=== PATIENT | male | born 1985 | race Caucasian/White ===

== ENCOUNTER 2016-04-15 23:04 | Emergency (ER) | payer OTHER ==
[2016-04-15 23:10] VITALS: BP 135/89; PULSE 78; RESP 16; TEMP 99.1
--- NOTE | 2016-04-15 23:29 | ED ---
General Adult HPI - General Chief complaint: Eye Problems Stated complaint: Vision Issues Time Seen by Provider: 04/15/16 23:18 Source: patient, RN notes reviewed, old records reviewed Mode of arrival: ambulatory Limitations: no limitations - History of Present Illness Initial comments: This is a 30-year-old male out of the ER for evaluation of eye pain, bilateral eye pain, severe, blurry vision. Eyes watering. 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 No other injuries - Related Data Home Medications Medication Instructions Recorded Confirmed No Known Home Medications [No 04/15/16 04/15/16 Known Home Medications] Allergies Allergy/AdvReac Type Severity Reaction Status Date / Time No Known Allergies Allergy Verified 04/15/16 23:10 Review of Systems ROS Statement: Those systems with pertinent positive or pertinent negative responses have been documented in the HPI. ROS Other: All systems not noted in ROS Statement are negative. 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 Absent: scleral icterus, conjunctival injection, periorbital swelling ENT exam: Present: normal exam, mucous membranes moist Neck exam: Present: normal inspection. Absent: tenderness, meningismus, lymphadenopathy Respiratory exam: Present: normal lung sounds bilaterally. Absent: respiratory distress, wheezes, rales, rhonchi, stridor Cardiovascular Exam: Present: regular rate, normal rhythm, normal heart sounds. Absent: systolic murmur, diastolic murmur, rubs, gallop, clicks GI/Abdominal exam: Present: soft, normal bowel sounds. Absent: distended, tenderness, guarding, rebound, rigid Extremities exam: Present: normal inspection, full ROM, normal capillary refill. Absent: tenderness, pedal edema, joint swelling, calf tenderness Back exam: Present: normal inspection Neurological exam: Present: alert, oriented X3, CN II-XII intact Psychiatric exam: Present: normal affect, normal mood Skin exam: Present: warm, dry, intact, normal color. 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
== END 2016-04-16 00:08 | disposition home or self-care (01) ==
LOC: EC 23:04
DX: H16.133 Photokeratitis, bilateral (principal); X32.XXXA Exposure to sunlight, initial encounter; F17.200 Nicotine dependence, unspecified, uncomplicated
CPT/HCPCS: 99282

== ENCOUNTER → 2016-10-31 | Outpatient (CLI) | payer OTHER ==
--- NOTE | 2016-10-31 13:43 | XR ---
EXAMINATION TYPE: XR hand complete LT, XR wrist complete LT DATE OF EXAM: 10/31/2016 CLINICAL HISTORY: Crushing injury with pain and swelling at the first metacarpal area and scaphoid pa in. Additional scaphoid view was obtained. TECHNIQUE: Frontal, lateral and oblique images of the left hand and wrist are obtained. COMPARISON: None. FINDINGS: There is no acute fracture/dislocation evident in the left hand or wrist. The joint spaces in the left hand appear within normal limits. The overlying soft tissue appears unremarkable. No la ceration, subcutaneous emphysema or radiopaque foreign body is seen. IMPRESSION: There is no acute fracture or dislocation in the left hand or wrist. If pain persists re peat radiograph could be performed in 7-10 days to evaluate for occult fracture.
== END | disposition home or self-care (01) ==
LOC: RADXRMAIN 12:53
PROVIDERS: ATTEND Emergency Medicine
DX: S67.22XA Crushing injury of left hand, initial encounter (principal); S67.32XA Crushing injury of left wrist, initial encounter

== ENCOUNTER 2017-07-17 22:27 | Emergency (ER) | payer OTHER ==
[2017-07-17 23:19] VITALS: RESP 18
--- NOTE | 2017-07-17 23:51 | ED ---
URI HPI - General Chief Complaint: Upper Respiratory Infection Stated Complaint: ear pain Time Seen by Provider: 07/17/17 23:41 Source: patient, RN notes reviewed Mode of arrival: ambulatory Limitations: no limitations - History of Present Illness Initial Comments: This is a 31-year-old male who presents to the emergency department with chief complaint of right ear pain and cough. Patient states that he has had upper respiratory symptoms for the past one week. He complains of right ear pain and fullness, sore throat, runny nose and a productive cough. He does state that he is a current, every day smoker. Denies fevers or chills, shortness of breath or chest pain, abdominal pain, nausea or vomiting, diarrhea or constipation. - Related Data Previous Rx's Medication Instructions Recorded Amoxicillin 875 mg PO Q8HR #30 tablet 07/18/17 Allergies Allergy/AdvReac Type Severity Reaction Status Date / Time No Known Allergies Allergy Verified 07/17/17 23:24 Review of Systems ROS Statement: Those systems with pertinent positive or pertinent negative responses have been documented in the HPI. ROS Other: All systems not noted in ROS Statement are negative. Past Medical History Past Medical History: No Reported History History of Any Multi-Drug Resistant Organisms: None Reported Past Surgical History: Orthopedic Surgery Additional Past Surgical History / Comment(s): pmh:hemangioma in brain tenriism area l side, bilat knee Past Psychological History: No Psychological Hx Reported Smoking Status: Current every day smoker Past Alcohol Use History: Rare Past Drug Use History: None Reported General Exam - General Exam Comments Initial Comments: General: Awake and alert, well-developed; in no apparent distress. HEENT: Head atraumatic, normocephalic. Pupils are equal, round and reactive to light. Extraocular movements intact. Oropharynx moist with mild erythema. Right TM is erythematous with effusion noted. Left TM is non-erythematous with effusion noted. Neck: Supple. Normal ROM. Cardiovascular: Regular rate and rhythm. No murmurs, rubs or gallops. Chest symmetrical. Respiratory: Lungs clear to auscultation bilaterally. No wheezes, rales or rhonchi. Normal respiratory effort with no use of accessory muscles. Musculoskeletal: Normal ROM, no tenderness bilateral upper and lower extremities. Skin: [place], warm and dry without rashes or lesions. Neurological: Alert and oriented x3. CN II-XII grossly intact. Speech is fluent and answers are appropriate. No focal neuro deficits. Psychiatric: Normal mood and affect. No overt signs of depression or anxiety noted. Limitations: no limitations Course Vital Signs 07/17/17 07/17/17 23:16 23:58 Temperature 98.7 F Pulse Rate 89 Respiratory 18 18 Rate Blood Pressure 119/68 O2 Sat by Pulse 97 Oximetry Medical Decision Making - Medical Decision Making This is a 31-year-old male who presents to the emergency department with chief complaint of upper respiratory symptoms for the past one week. Complains of cough, sore throat and particularly right ear pain. On physical examination, lungs are clear to auscultation bilaterally. Right TM is erythematous with effusion noted. Patient will be treated for an acute otitis media. Chest x- ray was obtained and revealed no acute abnormalities. Patient will be discharged home with a prescription for amoxicillin. He is in agreement with plan and voices understanding. All questions answered. Vital signs are stable and patient is in no acute distress. - Radiology Data Radiology results: report reviewed, image reviewed Chest x-ray impression: Normal chest. No change. Disposition Clinical Impression: Otitis media Disposition: HOME SELF-CARE Condition: Good Instructions: Otitis Media (ED) Additional Instructions: Please take medications as prescribed. Please follow up with primary care provider within 1-2 days. Return to emergency department if symptoms should worsen or any concerns arise. Prescriptions: Amoxicillin 875 mg PO Q8HR #30 tablet Is patient prescribed a controlled substance at d/c from ED?: No Referrals: Vic Spencer MD [Primary Care Provider] - 1-2 days Time of Disposition: 00:09
--- NOTE | 2017-07-18 00:04 | XR ---
EXAMINATION TYPE: XR chest 2V DATE OF EXAM: 07/17/2017 COMPARISON: 02/28/2011 HISTORY: Cough TECHNIQUE: Frontal and lateral views of the chest are obtained. FINDINGS: Heart and mediastinum are normal. Lungs are clear. Diaphragm is normal. Bony thorax appear s normal. IMPRESSION: Normal chest. No change.
[2017-07-18 00:09] VITALS: BP 149/76; PULSE 70; TEMP 98.1
== END 2017-07-18 00:35 | disposition home or self-care (01) ==
LOC: EC 22:27
DX: H66.91 Otitis media, unspecified, right ear (principal); R05 Cough; R09.89 Other specified symptoms and signs involving the circulatory and respiratory systems; F17.200 Nicotine dependence, unspecified, uncomplicated
CPT/HCPCS: 71046; 99283

== ENCOUNTER 2017-10-31 16:58 | Emergency (ER) | payer OTHER ==
[2017-10-31 17:01] VITALS: RESP 18
--- NOTE | 2017-10-31 17:37 | XR ---
EXAMINATION TYPE: XR knee complete LT DATE OF EXAM: 10/31/2017 COMPARISON: NONE HISTORY: Knee pain TECHNIQUE: 2 views FINDINGS: There is spurring of the medial femoral and tibial condyles. I see no fracture nor dislocat ion. There is no sign of joint effusion. IMPRESSION: Hypertrophic mild osteoarthritis. Spurring is moderate for the patient's relatively young age. No fracture.
--- NOTE | 2017-10-31 18:20 | ED ---
General Adult HPI - General Chief complaint: Wound/Laceration Stated complaint: left knee injury chainsaw Time Seen by Provider: 10/31/17 17:10 Source: patient, RN notes reviewed Mode of arrival: ambulatory Limitations: no limitations - History of Present Illness Initial comments: Patient's 32-year-old male presented to the emergency room today with a chief complaint of laceration to the left lower leg. He does admit he was using a chainsaw earlier today cutting a tree when the saw slipped kicking back hitting the left knee. Patient states tetanus is up-to-date. Admits to pain locally. Denies any other complaints or symptoms. Patient denies any recent fever, chills , shortness of breath, chest pain, back pain, abdominal pain, nausea or vomiting , numbness or tingling, dysuria or hematuria, constipation or diarrhea, headaches or visual changes, or any other complaints. - Related Data Previous Rx's Medication Instructions Recorded Amoxicillin 875 mg PO Q8HR #30 tablet 07/18/17 Cephalexin [Keflex] 500 mg PO Q12HR #14 cap 10/31/17 Allergies Allergy/AdvReac Type Severity Reaction Status Date / Time No Known Allergies Allergy Verified 10/31/17 17:01 Review of Systems ROS Statement: Those systems with pertinent positive or pertinent negative responses have been documented in the HPI. ROS Other: All systems not noted in ROS Statement are negative. 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 Neck: The neck is supple, there is no tenderness or JVD. Cardiovascular: There is a regular rate and rhythm. No murmur, rub or gallop is appreciated. Respiratory: Lungs are clear to auscultation, respirations are non-labored, breath sounds are equal. No wheezes, stridor, rales, or rhonchi. Musculoskeletal: Full range of motion. Sensation intact. Strength 5/5. Neurological: A&O x 3. CN II-XII intact, There are no obvious motor or sensory deficits. Coordination appears grossly intact. Speech is normal. Skin: 3 cm linear laceration over the anterior left knee. No active bleeding. Psychiatric: Normal mood and affect. Limitations: no limitations Course Vital Signs 10/31/17 16:59 Temperature 98.9 F Pulse Rate 93 Respiratory 18 Rate Blood Pressure 160/90 O2 Sat by Pulse 95 Oximetry Procedures - Procedures Initial comment: 3 cm linear laceration over the anterior left knee. No active bleeding. The skin was anesthetized with 1% lidocaine. The laceration was then cleansed with and irrigated under high pressure with normal saline. The wound was inspected, and there was no evidence of injury to deep structures. No foreign body was noted in the wound. A total of 8 skin sutures were placed utilizing 3-0 nylon. Disposition Clinical Impression: Laceration Disposition: HOME SELF-CARE Condition: Good Instructions: Laceration (ED) Additional Instructions: Please return to the emergency room in 14 days to have sutures removed. Please watch for any signs of infection which may include increased pain, swelling, redness, fever or chills. Please return to emergency room for any signs of infection do occur. Please use clean soap and water over the area to prevent scabbing over your stitches. Please leave wound covered for the first 24-48 hours and then leave wound open to air. Please return to the emergency room for any other concerns. Prescriptions: Cephalexin [Keflex] 500 mg PO Q12HR #14 cap Is patient prescribed a controlled substance at d/c from ED?: No Referrals: Vic Spencer MD [Primary Care Provider] - 1-2 days Time of Disposition: 18:20
[2017-10-31 18:44] VITALS: BP 156/82; PULSE 89; TEMP 98.3
== END 2017-10-31 18:35 | disposition home or self-care (01) ==
LOC: EC 16:58
DX: S81.012A Laceration without foreign body, left knee, initial encounter (principal); F17.200 Nicotine dependence, unspecified, uncomplicated; Z98.890 Other specified postprocedural states; W22.8XXA Striking against or struck by other objects, initial encounter; Y93.89 Activity, other specified
CPT/HCPCS: 12002; 99283

== ENCOUNTER 2018-06-11 11:01 | Emergency (ER) | payer OTHER ==
[2018-06-11 11:07] VITALS: RESP 18
--- NOTE | 2018-06-11 11:30 | ED ---
General Adult HPI - General Chief complaint: Headache Stated complaint: facial numbness Time Seen by Provider: 06/11/18 11:09 Source: patient Mode of arrival: ambulatory Limitations: no limitations - History of Present Illness Initial comments: 32-year-old male with past medical history of sinus cavernous hemangioma present today for chief complaint of headache and left-sided facial drooping. Patient states about an hour and half prior to presentation 10 AM he noticed he had a slight headache when he looked in the mirror patient noticed he could not smile completely on the left side. Pt states he does feel like he cannot sense his left side of his face as well as the right. Pt denies diplopia, vision loss, muscle weakness of the upper or lower extremities, he states his left hand feels slightly different than his right but he can feel. Pt denies speech or gait changes. Pt denies nausea vomiting dizziness. Pt denies recent head trauma, fever chills, nightsweats or viral illness. Upon arrival obvious left sided muscle weakness sparing forehead. Pt appears well. No signs of acute distress. She did note that he was recommended 5 years ago to have the hemangioma removed. Patient states he refused to have brain surgery. Patient states he does not see doctors often, and has not seen a neurologist in 4-5 years. Patient denies any recent fever, chills, shortness of breath, chest pain, back pain, abdominal pain, dysuria or hematuria, constipation or diarrhea,or any other complaints. - Related Data Home Medications Medication Instructions Recorded Confirmed Naproxen Sodium [Aleve] 440 mg PO Q8HR 06/11/18 06/11/18 Allergies Allergy/AdvReac Type Severity Reaction Status Date / Time No Known Allergies Allergy Verified 06/11/18 11:52 Review of Systems ROS Statement: Those systems with pertinent positive or pertinent negative responses have been documented in the HPI. ROS Other: All systems not noted in ROS Statement are negative. 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 Eye: +3 mm pupils are equal, round and reactive to light, extra-ocular movements are intact. No nystagmus. There is normal conjunctiva bilaterally. No signs of icterus. No photophobia. Ears, nose, mouth and throat: There are moist mucous membranes and no oral lesions. Neck: The neck is supple, there is no tenderness or JVD. Cardiovascular: There is a regular rate and rhythm. No murmur, rub or gallop is appreciated. Respiratory: Lungs are clear to auscultation, respirations are non-labored, breath sounds are equal. No wheezes, stridor, rales, or rhonchi. Gastrointestinal: Soft, non-distended, non-tender abdomen without masses or organomegaly noted. There is no rebound or guarding present. No CVA tenderness. Bowel sounds are unremarkable. Musculoskeletal: Normal ROM, no tenderness. Strength 5/5. Sensation intact. Radial pulses equal bilaterally 2+. Neurological: A&O x 3. memory intact to immediately, intermediate and group home recall. Able to follow simple verbal. Able to name a common object (pen). High quality, labial (pa) and lingual (la) speech. Low quality posterior pharynx/larynx (ga) voice sounds. Able to express general knowledge (days in a week). No hemineglect or inattention noted. Finger agnosia (-) and spatially oriented (identified L index finger touched R shoulder with L index finger). Light touch and temperature sensation present over the face, chest, abdomen, back, UE bilaterally, and LE bilaterally. Able to localize point during point localization b/l and extinction. No visible bulk atrophy, hypertrophy, fasciculations, or myoclonus of the UE or LE b/l. Full PROM in UE and LE b/l. Bilateral muscle strength 5/5 for the following muscles: deltoid, biceps, triceps, brachioradialis, wrist extensors/flexor, hip flexor, hip abductors/a dductors, hamstrings, quadriceps, feet dorsiflexors/plantar flexors. Finger to nose, finger to the examiners finger, and heel to luke coordinated and accurate b/l. Coordinated and even demonstration of hand flip, finger to thumb, and toe tap b/l. Gait is coordinated and even in stride with tandem, toe and heel walk. Maintains balance with monopedal stance. (-) pronator drift. No nuchal rigidity. (-) Brudzinskis and Kernig signs. Skin: Skin is warm and dry and no rashes or lesions are noted. Psychiatric: Cooperative, appropriate mood & affect, normal judgment. Limitations: no limitations Course Vital Signs 06/11/18 06/11/18 06/11/18 11:04 11:25 11:40 Temperature 97.8 F Pulse Rate 69 67 69 Respiratory 18 18 18 Rate Blood Pressure 153/91 124/70 137/77 O2 Sat by Pulse 98 97 96 Oximetry 06/11/18 06/11/18 06/11/18 11:55 12:10 13:00 Temperature Pulse Rate 68 61 63 Respiratory 18 18 18 Rate Blood Pressure 148/81 137/78 142/93 O2 Sat by Pulse 97 96 96 Oximetry - Reevaluation(s) Reevaluation #1: NIH 2-3 for minor facial paralysis, flat nasolabal and smile asymmetry. No drift of the upper or lower extremities no limits ataxia patient states that sensation of the face and the left upper extremity are mild to moderate left sharp or more dull in comparison the right. Patient has no aphasia no dysarthria no abnormality of extinction no noted attention. It is alert, acutely responsive to questions patient upper plate answers month and age. Patient is able to blink eyes and squeeze hands the same time. Normal gaze. I spoke with Dr. Gustafson at 11:30AM. 06/11/18 11:30 EKG Findings - EKG Comments: EKG Findings:: ventricular rate 57 bpm, OH 160 ms, QRS ration 94 ms, QT/QTC 414/42 ms. Sinus bradycardia nonspecific T wave no ST elevation or depression Medical Decision Making - Medical Decision Making 32-year-old male presents today for chief complaint of left-sided facial droop and headache." Stroke was called after patient had obvious left lower facial droop in comparison with the right. This is minor paralysis. Patient admits decreased sensation. Patient states he has decreased sensation of the left upper extremity. CT angiogram unremarkable. Reviewed by on-call interventional neurologist Dr. Regan. He did not recommend TPA with NIH of 2-3. Pt given aspirin. Dr. Regan recommended transfer to [facility] for MRI and neurology evaluation. Pt is agreeable with transfer denies questions at this time. Pt transferred to outside facility appearing well. Symptoms remain present, slight improvement of the left sided droop. I spoke with emergency department physician Dr. Hernandez at [facility] who accepted patient's transfer. - Lab Data Result diagrams: 06/11/18 11:19 06/11/18 11:19 Lab Results 06/11/18 06/11/18 06/11/18 Range/Units 11:19 11:19 11:19 WBC (3.8-10.6) k/uL RBC (4.30-5.90) m/uL Hgb (13.0-17.5) gm/dL Hct (39.0-53.0) % MCV (80.0-100.0) fL MCH (25.0-35.0) pg MCHC (31.0-37.0) g/dL RDW (11.5-15.5) % Plt Count (150-450) k/uL Neutrophils % % Lymphocytes % % Monocytes % % Eosinophils % % Basophils % % Neutrophils # (1.3-7.7) k/uL Lymphocytes # (1.0-4.8) k/uL Monocytes # (0-1.0) k/uL Eosinophils # (0-0.7) k/uL Basophils # (0-0.2) k/uL PT 9.5 (9.0-12.0) sec INR 0.9 (<1.2) APTT 24.0 (22.0-30.0) sec Sodium 143 (137-145) mmol/L Potassium 4.3 (3.5-5.1) mmol/L Chloride 108 H (98-107) mmol/L Carbon Dioxide 26 (22-30) mmol/L Anion Gap 9 mmol/L BUN 15 (9-20) mg/dL Creatinine 0.73 (0.66-1.25) mg/dL Est GFR (CKD-EPI)AfAm >90 (>60 ml/min/1.73 sqM) Est GFR (CKD-EPI)NonAf >90 (>60 ml/min/1.73 sqM) Glucose 113 H (74-99) mg/dL Plasma Lactic Acid Tommie (0.7-2.0) mmol/L Calcium 9.4 (8.4-10.2) mg/dL Total Bilirubin 0.6 (0.2-1.3) mg/dL AST 25 (17-59) U/L ALT 45 (21-72) U/L Alkaline Phosphatase 94 (38-126) U/L Total Creatine Kinase 175 H (55-170) U/L CK-MB (CK-2) 1.0 (0.0-2.4) ng/mL CK-MB (CK-2) Rel Index 0.6 Troponin I <0.012 (0.000-0.034) ng/mL Total Protein 7.1 (6.3-8.2) g/dL Albumin 4.3 (3.5-5.0) g/dL 06/11/18 06/11/18 Range/Units 11:19 11:19 WBC 9.2 (3.8-10.6) k/uL RBC 4.98 (4.30-5.90) m/uL Hgb 15.4 (13.0-17.5) gm/dL Hct 45.1 (39.0-53.0) % MCV 90.4 (80.0-100.0) fL MCH 30.8 (25.0-35.0) pg MCHC 34.1 (31.0-37.0) g/dL RDW 14.3 (11.5-15.5) % Plt Count 274 (150-450) k/uL Neutrophils % 56 % Lymphocytes % 32 % Monocytes % 6 % Eosinophils % 4 % Basophils % 1 % Neutrophils # 5.1 (1.3-7.7) k/uL Lymphocytes # 2.9 (1.0-4.8) k/uL Monocytes # 0.6 (0-1.0) k/uL Eosinophils # 0.4 (0-0.7) k/uL Basophils # 0.1 (0-0.2) k/uL PT (9.0-12.0) sec INR (<1.2) APTT (22.0-30.0) sec Sodium (137-145) mmol/L Potassium (3.5-5.1) mmol/L Chloride (98-107) mmol/L Carbon Dioxide (22-30) mmol/L Anion Gap mmol/L BUN (9-20) mg/dL Creatinine (0.66-1.25) mg/dL Est GFR (CKD-EPI)AfAm (>60 ml/min/1.73 sqM) Est GFR (CKD-EPI)NonAf (>60 ml/min/1.73 sqM) Glucose (74-99) mg/dL Plasma Lactic Acid Tommie 1.2 (0.7-2.0) mmol/L Calcium (8.4-10.2) mg/dL Total Bilirubin (0.2-1.3) mg/dL AST (17-59) U/L ALT (21-72) U/L Alkaline Phosphatase (38-126) U/L Total Creatine Kinase (55-170) U/L CK-MB (CK-2) (0.0-2.4) ng/mL CK-MB (CK-2) Rel Index Troponin I (0.000-0.034) ng/mL Total Protein (6.3-8.2) g/dL Albumin (3.5-5.0) g/dL Disposition Clinical Impression: Facial droop, Left facial numbness, Neurological symptoms Disposition: OTHER INSTITUTION NOT DEFINED Condition: Stable Is patient prescribed a controlled substance at d/c from ED?: No Referrals: Vic Spencer MD [Primary Care Provider] - 1-2 days Time of Disposition: 12:56 - Out of Hospital Transfer - Req. Specs Out of Hospital Transfer - Requested Specifics: Other Emergency Center ([facility]-Dr. Hernandez)
[2018-06-11 11:34] LABS: Basophils # (A) 0.1 k/uL (0-0.2); Basophils % (A) 1 %; Eosinophils # (A) 0.4 k/uL (0-0.7); Eosinophils % (A) 4 %; HCT 45.1 % (39.0-53.0); HGB 15.4 gm/dL (13.0-17.5); Lymphocytes # (A) 2.9 k/uL (1.0-4.8); Lymphocytes % (A) 32 %; MCH 30.8 pg (25.0-35.0); MCHC 34.1 g/dL (31.0-37.0); MCV 90.4 fL (80.0-100.0); Mean Platelet Volume 7.2; Monocytes # (A) 0.6 k/uL (0-1.0); Monocytes % (A) 6 %; Neutrophils # (A) 5.1 k/uL (1.3-7.7); Neutrophils % (A) 56 %; Platelet Count 274 k/uL (150-450); RBC 4.98 m/uL (4.30-5.90); RDW 14.3 % (11.5-15.5); WBC 9.2 k/uL (3.8-10.6)
[2018-06-11 11:42] LABS: INR 0.9 (<1.2); Prothrombin Time 9.5 sec (9.0-12.0)
[2018-06-11 11:46] LABS: ALT 45 U/L (21-72); AST 25 U/L (17-59); Albumin 4.3 g/dL (3.5-5.0); Alkaline Phosphatase 94 U/L (38-126); Anion Gap 9 mmol/L; Blood Urea Nitrogen 15 mg/dL (9-20); Calcium 9.4 mg/dL (8.4-10.2); Carbon Dioxide 26 mmol/L (22-30); Chloride 108 mmol/L (98-107); Glucose 113 mg/dL (74-99); Potassium 4.3 mmol/L (3.5-5.1); Sodium 143 mmol/L (137-145); Total Bilirubin 0.6 mg/dL (0.2-1.3); Total Protein 7.1 g/dL (6.3-8.2)
--- NOTE | 2018-06-11 11:46 | CT ---
EXAMINATION TYPE: CT brain wo con DATE OF EXAM: 06/11/2018 COMPARISON: 07/13/2014 HISTORY: Lt facial droop CT DLP: Unavailable mGycm Unenhanced CT of the brain was performed. The ventricles, basal cisterns and sulci overlying the cerebral convexities demonstrate a normal appe arance. There is no evidence for intracranial hemorrhage or sulcal effacement. No mass effects are seen. Osseous calvarium is intact. If symptoms persist consider MRI as clinically warranted. IMPRESSION: 1. No acute intracranial process is seen at this time.
[2018-06-11 12:00] LABS: Creatine Kinase 175 U/L (55-170)
[2018-06-11 12:13] LABS: Troponin I <0.012 ng/mL (0.000-0.034)
--- NOTE | 2018-06-11 12:15 | XR ---
EXAMINATION TYPE: XR chest 2V DATE OF EXAM: 06/11/2018 COMPARISON: 07/18/2017 HISTORY: Altered mental status TECHNIQUE: Frontal and lateral views of the chest are obtained. FINDINGS: There is no focal air space opacity, pleural effusion, or pneumothorax seen. The cardiac silhouette size is within normal limits. The osseous structures are intact. IMPRESSION: No acute cardiopulmonary process.
[2018-06-11] MEDS ORDERED: ASPIRIN 325 MG TAB PO STA (12:43)
--- NOTE | 2018-06-11 13:06 | CT ---
EXAMINATION TYPE: CT angio head neck DATE OF EXAM: 06/11/2018 HISTORY: Lt facial droop COMPARISON: CT brain of the same date CT DLP: 2112 mGycm. Automated Exposure Control for Dose Reduction was Utilized. TECHNIQUE: CTA scan of the neck is performed with IV Contrast, patient injected with 65 mL of Isovue 370, axial images are obtained, coronal and sagittal reformatted images are reviewed. Three-D recons tructed images are created on an independent workstation and reviewed. FINDINGS: Carotid/Vascular Structures: There is a conventional three-vessel branch pattern of the aortic arch. The common carotid arteries, carotid bulbs, and cervical portions of the internal carotid arteries ar e patent. The vertebral arteries are also patent with left-sided dominance. Basilar artery is unremarkable. Pos terior circulation is well opacified. Right posterior communicating artery is either extremely diminu tive or congenitally absent. [place] appears incomplete. No sizable aneurysm, vascular occlu joselin or dissection is seen of the major intracranial vasculature. Other: Tonsils are bilaterally enlarged with right-sided tonsiliths noted. Partially visualized right upper lobe focal groundglass opacity may relate to infectious or inflammatory pneumonitis. Osseous s tructures are grossly intact with mild degenerative changes of the spine. Scant mucosal thickening is seen within the left maxillary sinus. There is near complete opacification of the right mastoid air cells. IMPRESSION: 1. No focal vascular occlusion, aneurysmal outpouching or dissection of the major vasculature of the head or neck. 2. Near complete opacification of the right mastoid air cells. Correlate with point tenderness to exc lude mastoiditis. 3. Partial visualization of a patchy groundglass right upper lobe opacity that may represent infectio us or inflammatory pneumonitis.
[2018-06-11 13:26] VITALS: BP 142/89; PULSE 67; TEMP 98.7
== END 2018-06-11 13:29 | disposition short-term general hospital (02) ==
LOC: EC 11:01
DX: R29.810 Facial weakness (principal); R20.0 Anesthesia of skin; R51 Headache; G81.94 Hemiplegia, unspecified affecting left nondominant side; F17.200 Nicotine dependence, unspecified, uncomplicated; Z79.1 Long term (current) use of non-steroidal anti-inflammatories (NSAID); Z86.011 Personal history of benign neoplasm of the brain
CPT/HCPCS: 99285; 36415; 93005; 80053; 82550; 82553; 83605; 84484; 85025; 85610; 85730; 71046; 70496; 70450; 70498; Q9967

== ENCOUNTER → 2018-08-15 | Outpatient (CLI) | payer OTHER ==
--- NOTE | 2018-08-16 07:18 | US ---
EXAMINATION TYPE: US thyroid st tissue head/neck DATE OF EXAM: 08/15/2018 COMPARISON: CT CLINICAL HISTORY: R22.1 SWELLING OR LUMP. Swelling/pain lump left neck x 2 months. Scanned left neck area of concern. Multiple hypoechoic areas with echogenic centers seen. Largest rachel sures: 1.7 x 1.2 x 0.9 cm. Scanned right neck for comparison. Hypoechoic area with echogenic area seen measurin.7 x 0.9 x 0. 7 cm. IMPRESSION: The palpable abnormalities correspond to morphologically normal-appearing nonenlarged lymph nodes. Th meliza are seen both on the right and left. If these clinically enlarged repeat short-term ultrasound co uld be performed for reassessment.
== END | disposition home or self-care (01) ==
LOC: RADUSWWP 16:51
PROVIDERS: ATTEND Family Medicine
DX: R22.1 Localized swelling, mass and lump, neck (principal)
CPT/HCPCS: 76536

== ENCOUNTER 2018-10-14 17:57 | Emergency (ER) | payer OTHER ==
[2018-10-14 18:14] VITALS: TEMP 98.7
--- NOTE | 2018-10-14 18:59 | ED ---
General Adult HPI - General Chief complaint: Neuro Symptoms/Deficit Stated complaint: headache Time Seen by Provider: 10/14/18 18:34 Source: patient, RN notes reviewed, old records reviewed Mode of arrival: ambulatory Limitations: no limitations - History of Present Illness Initial comments: 33-year-old male patient with past medical history of reported TIA proximal with 4 months ago presents to ED with chief complaint of 24 hours of left hemisphere headache, left facial pain, isolated left eyelid drooping. Patient denies any upper or lower extremity paresthesias, weakness. Denies any loss of consciousness. Denies any changes in vision. Patient was at his left ear hearing is slightly fuzzy. Her gross hearing is intact. Patient was reportedly seen by his primary care before presenting to ER. Denies any recent falls or trauma. Denies any other complaints at this time. Systemic: Pt denies fatigue, fever/chills, rash. Pt denies weakness, night sweats, weight loss. Neuro: Pt denies visual disturbances, syncope or pre-syncope. HEENT: Pt denies ocular discharge or irritation, otalgia, rhinorrhea, pharyngitis or notable lymphadenopathy. Cardiopulmonary: Pt denies chest pain, SOB, heart palpitations, dyspnea on exertion. Abdominal/GI: Pt denies abdominal pain, n/v/d. : Pt denies dysuria, burning w/ urination, frequency/urgency. Denies new onset urinary or bowel incontinence. MSK: Pt denies myalgia, loss of strength or function in extremities. Neuro: Pt denies new onset weakness, paresthesias. - Related Data Home Medications Medication Instructions Recorded Confirmed Atorvastatin Calcium [Lipitor] 40 mg PO DAILY 10/14/18 10/14/18 amLODIPine [Norvasc] 5 mg PO DAILY 10/14/18 10/14/18 Previous Rx's Medication Instructions Recorded Amoxicillin/Potassium Clav 1 each PO Q12HR 14 Days #28 tab 10/14/18 [Augmentin 875-125 Tablet] Allergies Allergy/AdvReac Type Severity Reaction Status Date / Time No Known Allergies Allergy Verified 10/14/18 18:40 Review of Systems ROS Statement: Those systems with pertinent positive or pertinent negative responses have been documented in the HPI. ROS Other: All systems not noted in ROS Statement are negative. 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 stroke in june 2018 Past Psychological History: No Psychological Hx Reported Smoking Status: Current every day smoker Past Alcohol Use History: Rare Past Drug Use History: None Reported General Exam - General Exam Comments Initial Comments: Constitutional: NAD, AOX3, Pt has pleasant affect. HEENT: NC/AT, trachea midline, neck supple, no lymphadenopathy. Posterior pharynx non erythematous, without exudates. External ears appear normal, without discharge. Mucous membranes moist. Eyes PERRLA, EOM intact. There is no scleral icterus. No pallor noted. Cardiopulmonary: RRR, no murmurs, rubs or gallops, no JVD noted. Lungs CTAB in anterior and posterior brown. No peripheral edema. Abdominal exam: Abdomen soft and non-distended. Abdomen non-tender to palpation in all 4 quadrants. Bowel sounds active in LLQ. No hepatosplenomegaly. No ecchymosis Neuro: CN II-XII intact. Isolated left eyelid drooping noted at rest, however patient able to open eyelid fully, strength intact. No nuchal rigidity. No raccon eyes, no oglesby sign, no hemotympanum. No cervical spinal tenderness. Area Representative strength intact and equal. MSK: No posterior calf tenderness bilaterally, homans sign negative bilaterally. Posterior tibialis and radial pulse +2 bilaterally. Sensation intact in upper and lower extremities. Full active ROM in upper and lower extremities, 5/5 stregnth. Limitations: no limitations Course Vital Signs 10/14/18 18:11 Temperature 98.7 F Pulse Rate 83 Respiratory 18 Rate Blood Pressure 166/80 O2 Sat by Pulse 97 Oximetry Medical Decision Making - Medical Decision Making 33-year-old male patient with past medical history of reported TIA proximal with 4 months ago presents to ED with chief complaint of 24 hours of left hemisphere headache, left facial pain, isolated left eyelid drooping. Patient denies any upper or lower extremity paresthesias, weakness. Denies any loss of consciousness. Denies any changes in vision. Patient was at his left ear hearing is slightly fuzzy. Her gross hearing is intact. Patient was reportedly seen by his primary care before presenting to ER. Denies any recent falls or trauma. Denies any other complaints at this time. Patient vital signs stable, afebrile. Physical exam revealed: CN II-XII intact. Isolated left eyelid drooping noted at rest, however patient able to open eyelid fully, strength intact. No nuchal rigidity. No raccon eyes, no oglesby sign, no hemotympanum. No cervical spinal tenderness. fullactive ROM in all extremities, no drift. Aox3. Laboratory investigations revealed a leukocytosis of 13.2. CT brain displayed no acute intracranial abnormality. CT facial bones leg minimal left maxillary sinusitis. Patient denies a likely due to left sinusitis as well as complex migraine-type headache. Patient was evaluated by Dr. Tuttle who is in agreement with assessment. Patient headache treated, patient will be treated with Augmentin for sinusitis. Patient will have close outpatient follow-up with his primary care provider. - Lab Data Result diagrams: 10/14/18 19:09 10/14/18 19:09 Lab Results 10/14/18 10/14/18 Range/Units 19:09 19:09 WBC 13.2 H (3.8-10.6) k/uL RBC 4.86 (4.30-5.90) m/uL Hgb 15.2 (13.0-17.5) gm/dL Hct 44.8 (39.0-53.0) % MCV 92.3 (80.0-100.0) fL MCH 31.3 (25.0-35.0) pg MCHC 33.9 (31.0-37.0) g/dL RDW 15.7 H (11.5-15.5) % Plt Count 244 (150-450) k/uL Neutrophils % 62 % Lymphocytes % 28 % Monocytes % 5 % Eosinophils % 3 % Basophils % 1 % Neutrophils # 8.2 H (1.3-7.7) k/uL Lymphocytes # 3.7 (1.0-4.8) k/uL Monocytes # 0.7 (0-1.0) k/uL Eosinophils # 0.4 (0-0.7) k/uL Basophils # 0.1 (0-0.2) k/uL Sodium 141 (137-145) mmol/L Potassium 3.8 (3.5-5.1) mmol/L Chloride 106 (98-107) mmol/L Carbon Dioxide 28 (22-30) mmol/L Anion Gap 7 mmol/L BUN 13 (9-20) mg/dL Creatinine 0.77 (0.66-1.25) mg/dL Est GFR (CKD-EPI)AfAm >90 (>60 ml/min/1.73 sqM) Est GFR (CKD-EPI)NonAf >90 (>60 ml/min/1.73 sqM) Glucose 104 H (74-99) mg/dL Calcium 9.3 (8.4-10.2) mg/dL Total Bilirubin 0.6 (0.2-1.3) mg/dL AST 17 (17-59) U/L ALT 31 (21-72) U/L Alkaline Phosphatase 99 (38-126) U/L Total Protein 7.1 (6.3-8.2) g/dL Albumin 4.2 (3.5-5.0) g/dL Disposition Clinical Impression: Sinusitis, Migraine headache Disposition: HOME SELF-CARE Condition: Stable Instructions (If sedation given, give patient instructions): Sinusitis (ED), Acute Headache (ED) Additional Instructions: Patient to adhere to previously discussed treatment plan and will take medication(s) as directed. Patient to follow up with PCP in 1-2 days. Patient to return to ED if symptoms do not improve. Follow-up with primary care provider tomorrow. Return to ER if condition worsens. Take medications for sinusitis. Prescriptions: Amoxicillin/Potassium Clav [Augmentin 875-125 Tablet] 1 each PO Q12HR 14 Days #28 tab Is patient prescribed a controlled substance at d/c from ED?: No Referrals: Vic Spencer MD [Primary Care Provider] - 1-2 days
[2018-10-14 19:25] LABS: Basophils # (A) 0.1 k/uL (0-0.2); Basophils % (A) 1 %; Eosinophils # (A) 0.4 k/uL (0-0.7); Eosinophils % (A) 3 %; HCT 44.8 % (39.0-53.0); HGB 15.2 gm/dL (13.0-17.5); Lymphocytes # (A) 3.7 k/uL (1.0-4.8); Lymphocytes % (A) 28 %; MCH 31.3 pg (25.0-35.0); MCHC 33.9 g/dL (31.0-37.0); MCV 92.3 fL (80.0-100.0); Mean Platelet Volume 7.4; Monocytes # (A) 0.7 k/uL (0-1.0); Monocytes % (A) 5 %; Neutrophils # (A) 8.2 k/uL (1.3-7.7); Neutrophils % (A) 62 %; Platelet Count 244 k/uL (150-450); RBC 4.86 m/uL (4.30-5.90); RDW 15.7 % (11.5-15.5); WBC 13.2 k/uL (3.8-10.6)
[2018-10-14 19:32] LABS: ALT 31 U/L (21-72); AST 17 U/L (17-59); African American GFR (CKD) >90 (>60 ml/min/1.73 sqM); Albumin 4.2 g/dL (3.5-5.0); Alkaline Phosphatase 99 U/L (38-126); Anion Gap 7 mmol/L; Blood Urea Nitrogen 13 mg/dL (9-20); Calcium 9.3 mg/dL (8.4-10.2); Carbon Dioxide 28 mmol/L (22-30); Chloride 106 mmol/L (98-107); Glucose 104 mg/dL (74-99); Potassium 3.8 mmol/L (3.5-5.1); Sodium 141 mmol/L (137-145); Total Bilirubin 0.6 mg/dL (0.2-1.3); Total Protein 7.1 g/dL (6.3-8.2)
--- NOTE | 2018-10-14 19:45 | CT ---
EXAMINATION TYPE: CT brain wo con DATE OF EXAM: 10/14/2018 COMPARISON: 06/11/2018 HISTORY: Left sided facial pain and swelling. No injury. CT DLP: 1321.6 mGycm. Automated Exposure Control for Dose Reduction was Utilized. TECHNIQUE: CT scan of the head is performed without contrast. FINDINGS: Ventricles and sulci appear normal. There is no mass effect nor midline shift. There is no sign of intracranial hemorrhage. Calvarium is intact. There is a 9 mm rounded area of increased densi ty in the lateral aspect right temporal lobe that could be extra-axial. This is also present on the o ld CT scan of 07/13/2014 and not changed in size. Also unchanged compared to CT scan of 03/24/2008. IMPRESSION: No acute intracranial abnormality. Stable calcific type extra-axial density in the left temporal garth on.
--- NOTE | 2018-10-14 19:47 | CT ---
EXAMINATION TYPE: CT facial bones wo con DATE OF EXAM: 10/14/2018 COMPARISON: None HISTORY: Left sided facial pain and swelling. No injury. CT DLP: 1321.6 mGycm Automated exposure control for dose reduction was used. TECHNIQUE: CT scan of the sinuses is performed without contrast, axial images are obtained, coronal r eformatted images are also reviewed. FINDINGS: There is very minimal mucosal thickening left maxillary sinus. I see no bony destructive pr ocess. The other paranasal sinuses appear normal. There is bilateral patency of the ostia medial comp kalli. Mandibular ring is intact. Temporomandibular joints appear normal. Maxilla is intact. Zygomatic arche s appear normal. Nasal bone is intact. There is no evidence of orbital mass. There is no evidence of blowout fracture. IMPRESSION: Minimal left maxillary sinusitis. Otherwise negative exam.
[2018-10-14] MEDS ORDERED: AMOXIC-POT CLAV 875MG STARTER 2 EACH TABLET PO STA (19:50)
[2018-10-14] MEDS ORDERED: diphenhydrAMINE 50 MG/ML 1 ML VIAL IVP STA (19:52)
[2018-10-14] MEDS ORDERED: KETOROLAC 30 MG/ML 1 ML VIAL IVP STA (19:52)
[2018-10-14] MEDS ORDERED: AMOXIC-POT CLAV 875-125MG 1 EACH TAB PO STA (19:52)
[2018-10-14] MEDS ORDERED: METOCLOPRAMIDE 5 MG/ML 2 ML VIAL IVP STA (19:52)
[2018-10-14 20:35] VITALS: BP 142/93; PULSE 62; RESP 17
== END 2018-10-14 20:33 | disposition home or self-care (01) ==
LOC: EC 17:57
DX: G43.909 Migraine, unspecified, not intractable, without status migrainosus (principal); J32.0 Chronic maxillary sinusitis; H02.402 Unspecified ptosis of left eyelid; D72.829 Elevated white blood cell count, unspecified; F17.200 Nicotine dependence, unspecified, uncomplicated; Z86.73 Personal history of transient ischemic attack (TIA), and cerebral infarction without residual deficits
CPT/HCPCS: 36415; 80053; 85025; 70486; 70450; 96374; 96375 ×2; 99285; J1200; J2765; J1885; 96365

== ENCOUNTER 2018-10-16 11:35 | Observation (INO) | payer OTHER ==
[2018-10-16 12:28] LABS: Glucose,Whole Blood 88 mg/dL (75-99)
--- NOTE | 2018-10-16 13:14 | CT ---
EXAMINATION TYPE: CT brain wo con DATE OF EXAM: 10/16/2018 COMPARISON: 10/14/2018 HISTORY: New onset left side weakness CT DLP: 1064.4 mGycm. Automated Exposure Control for Dose Reduction was Utilized. TECHNIQUE: CT scan of the head is performed without contrast. FINDINGS: There is no acute intracranial hemorrhage, mass effect, or midline shift identified. The ventricles and sulci are within normal limits in size. The globes are intact and the visualized sin uses are clear. Left scalp hematoma is noted in the parieto-occipital region measuring [address] thickness on image 30 of the axial series. 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 There is opacification of the right mastoid air cells. The visualized nasal sinuses and left mastoid air ce lls are well aerated. Partially empty sella turcica is incidentally seen as are low-lying cerebellar tonsils. IMPRESSION: 1. Left scalp hematoma is noted within the parieto-occipital soft tissues measuring 5 mm in greatest thickness. Correlate for recent injury. 2. No acute intracranial hemorrhage, mass effect, or midline shift is seen. 3. Low-lying cerebellar tonsils are incidentally seen as well as partially empty sella turcica. Corre late for intracranial hypertension.
[2018-10-16 15:12] LABS: Basophils # (A) 0.1 k/uL (0-0.2); Basophils % (A) 0 %; Eosinophils # (A) 0.2 k/uL (0-0.7); Eosinophils % (A) 1 %; HCT 46.2 % (39.0-53.0); HGB 15.5 gm/dL (13.0-17.5); Lymphocytes # (A) 3.5 k/uL (1.0-4.8); Lymphocytes % (A) 26 %; MCH 30.9 pg (25.0-35.0); MCHC 33.6 g/dL (31.0-37.0); MCV 91.9 fL (80.0-100.0); Monocytes # (A) 0.7 k/uL (0-1.0); Monocytes % (A) 5 %; Neutrophils # (A) 9.2 k/uL (1.3-7.7); Neutrophils % (A) 67 %; Platelet Count 279 k/uL (150-450); RBC 5.03 m/uL (4.30-5.90); RDW 13.5 % (11.5-15.5); WBC 13.8 k/uL (3.8-10.6)
[2018-10-16 15:20] LABS: ALT 30 U/L (21-72); AST 20 U/L (17-59); African American GFR (CKD) >90 (>60 ml/min/1.73 sqM); Albumin 4.4 g/dL (3.5-5.0); Alkaline Phosphatase 100 U/L (38-126); Anion Gap 10 mmol/L; Blood Urea Nitrogen 13 mg/dL (9-20); Calcium 9.3 mg/dL (8.4-10.2); Carbon Dioxide 24 mmol/L (22-30); Chloride 106 mmol/L (98-107); Cholesterol 113 mg/dL (<200); Glucose 84 mg/dL (74-99); HDL Cholesterol 36 mg/dL (40-60); LDL Cholesterol,Calculated 61 mg/dL (0-99); Non-African American GFR(CKD) >90 (>60 ml/min/1.73 sqM); Sodium 140 mmol/L (137-145); Total Bilirubin 0.9 mg/dL (0.2-1.3); Total Protein 7.3 g/dL (6.3-8.2); Triglycerides 82 mg/dL (<150)
[2018-10-16 16:01] VITALS: BMI 40.8
--- NOTE | 2018-10-16 17:00 | HP ---
HISTORY AND PHYSICAL CHIEF COMPLAINT: Left-sided weakness, hypesthesia and ptosis. HISTORY OF PRESENT ILLNESS: This is another [facility] visit for this 33-year-old white male. Several months ago, he presented to the emergency room as a possible stroke and was sent to [facility]. There they diagnosed him as having a TIA and an aneurysm of the left carotid artery. He was discharged and has had complete clearing of his symptoms and had not had any other problems until recently. He has seen Dr. Hernandez for evaluation of the left carotid and it was reported that this was likely not an abnormal finding and would he be followed as an outpatient. He has also complained of some swelling in the left side of the neck. Efforts to have outpatient studies done to further workup his signs and symptoms have been frustrated by the fact that we cannot get approval from [facility] to do a CT of the soft tissue of the neck and MRI of the brain. He came back into the office 2 days prior to this admission and had recurrent headache, left ptosis, left- sided facial weakness and dysesthesias from the left ear forward and also some tingling in his left arm. He was to have been admitted, but he went to the hospital. He was brought into the emergency room. They told him that he had sinusitis and headache and sent home. He came back on the day of admission with a more intense headache and more sensation of left-sided weakness of the face and a "pressure" like feeling in the left cheek area. Under the circumstances, it was felt advisable to bring him in the hospital and bring people to him including vascular surgery, Neurology and Ophthalmology. He was originally discharged from the emergency room and was told that there were no direct admit to this hospital for are no "direct admits to this hospital for neurology." REVIEW OF SYSTEMS: He has not had any head injuries, fever and chills, nuchal rigidity, pharyngitis, etc. He has had no chest pain, shortness of breath, cough, hemoptysis, heart disease, murmurs, rheumatic fever, orthopnea, PND, abdominal pain, nausea, vomiting, hematemesis, melena, hematochezia, jaundice, hepatitis, hematuria, frequency, urgency, renal failure, arthralgias, diabetes, etc. Past medical history, family history and personal and social histories are all otherwise unremarkable or noncontributory. He does smoke. There is no significant family history and he is a nondrinker. PHYSICAL EXAM: Blood pressure 140/80, pulse 78 and regular, respirations 16, temperature 98.6. In general, he appeared to be slightly overweight, in no acute distress. Skin was dry and lymph nodes are not enlarged. Head, ears, eyes, nose, mouth and throat demonstrated ptosis on the left and there was slight injection of the sclerae on the left. Pupils were equal, round, reactive and extraocular movements are intact. Fundi are normal. It was thought he may have slight weakness in the right facial muscles. All of his symptoms seem to be confined to the maxillary branch of the left 5th nerve. Ears are clear. Nose, mouth and throat are otherwise normal. Speech is normal. Carotids are normal. Chest is clear to auscultation and percussion. Cardiac exam demonstrated normal sinus rhythm and no murmurs or extra sounds. Abdomen is soft and nontender. There are no masses. It was slightly protuberant. Extremities are normal. Neurologically, he had the left ptosis and slight left-sided facial weakness in the distribution of the maxillary branch of the left 5th nerve. Sensory and motor exam is otherwise normal. Toes downgoing. There is no ataxia. IMPRESSION: 1. Headache with left facial weakness and ptosis. 2. History of transient ischemic attack or cerebrovascular accident several months ago. 3. 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 4. History of hypertension. PLAN: 1. Bed rest. 2. Frequent evaluation of his vital signs and neurologic status. 3. Consult Neurology. 4. Consult Ophthalmology. 5. Consult Vascular Surgery. 6. Carotid duplex imaging. 7. CT of the neck. 8. MRI and MRA of the brain. 9. If all these studies are negative, this would have to be considered as a possible migraine variant. MMODL / IJN: [id number] /
[2018-10-16] MEDS ORDERED: ARTIFICIAL TEARS-HYPROMELLOSE DROPS 15 ML BTL LEFT EYE PRN (17:05)
--- NOTE | 2018-10-16 19:05 | US ---
EXAMINATION TYPE: US carotid duplex BILAT DATE OF EXAM: 10/16/2018 COMPARISON: MT angio head after US today CLINICAL HISTORY: tia. Left facial drooping today; prior TIA June 2018 affecting left body side and speech per patient; headaches x 4 days; smoker EXAM MEASUREMENTS: RIGHT: Peak Systolic Velocity (PSV) cm/sec ----- Right CCA: 84.6 ----- Right ICA: 100.9 ----- Right ECA: 78.9 ICA/CCA ratio: 1.2 RIGHT: End Diastole cm/sec ----- Right CCA: 22.8 ----- Right ICA: 34.8 ----- Right ECA: 9.5 LEFT: Peak Systolic Velocity (PSV) cm/sec ----- Left CCA: 83.3 ----- Left ICA: 110.9 ----- Left ECA: 86.3 ICA/CCA ratio: 1.3 LEFT: End Diastole cm/sec ----- Left CCA: 17.2 ----- Left ICA: 39.6 ----- Left ECA: 15.0 VERTEBRALS (direction of flow): Right Vertebral: Antegrade Left Vertebral: Antegrade Rhythm: Normal Very mild intimal wall thickening is noted in proximal bilateral ICA IMPRESSION: There is antegrade flow in the vertebral arteries. The images and measurements suggest c lose to 0% stenosis in both internal carotid arteries. Criteria for Assigning % of Stenosis / Diameter reduction (Estimation based on the indirect measurements of the internal carotid artery velocities (ICA PSV). 1. Normal (no stenosis)=ICA PSV < 125 cm/s: ratio < 2.0: ICA EDV<40 cm/s. 2. Less than 50% stenosis=ICA PSV < 125 cm/s: ratio < 2.0: ICA EDV<40 cm/s. 3. 50 to 69% stenosis=ICA PSV of 125 to 230 cm/s: ration 2.0 ? 4.0: ICA EDV 40-100 cm/s. 4. Greater than 70% stenosis to near occlusion= ICA PSV > 230 cm/s: ratio > 4.0: ICA EDV > 100 cm/s. 5. Near occlusion= ICA PSV velocities may be low or undetectable: variable ratio and ICA EDV. 6. Total occlusion=unable to detect flow.
--- NOTE | 2018-10-16 19:10 | MR ---
EXAMINATION TYPE: MR angio head wo con DATE OF EXAM: 10/16/2018 COMPARISON: None HISTORY: Patient presents with headaches and dizziness, hx of stroke TECHNIQUE: Time of flight images focusing on the [place] were performed without contrast. FINDINGS: There is arterial flow in the anterior middle and posterior cerebral arteries. There is art erial flow in the vertebrobasilar artery system. I see no patency of the posterior communicating frederick erasmo. There is arterial flow in both distal internal carotid arteries. There is no evidence of hemody namic stenosis. There is no mass effect. There is no sign of aneurysm or neovascularity. IMPRESSION: Negative MR angiography exam of the brain.
--- NOTE | 2018-10-16 19:14 | MR ---
EXAMINATION TYPE: MR brain wo/w con DATE OF EXAM: 10/16/2018 COMPARISON: 07/14/2014 HISTORY: Patient presents with headaches and dizziness, hx of stroke TECHNIQUE: Multiplanar, multisequence images of the brain and brainstem is performed without and with IV contras t, utilizing 14.5 mL intravenous Gadavist . FINDINGS: Ventricles have normal size. There is no mass effect nor midline shift. There is no sign of intracran ial hemorrhage. [place]ined[place]-white matter structures have normal signal pattern. There is no evidence of cere bral edema. There is no evidence of cortical infarct. There is mucosal thickening in the mastoid sinu ses on the right side more than the left. Corpus callosum appears normal. Brainstem is intact. Sella turcica appears normal. There is no evidence of cerebral edema. There is m ild mucosal thickening in the left side ethmoid sinus. There is no pathologic enhancement. There is normal contrast opacification of the venous sinuses. IMPRESSION: Negative MR scan of the brain. Mastoiditis that is worse on the right side. Mild ethmoid sinusitis. Exam not significantly different than old exam.
[2018-10-16] MEDS ORDERED: ACETAMINOPHEN TAB 325 MG TAB PO PRN (20:16)
[2018-10-17 08:18] VITALS: BP 122/64; PULSE 61; RESP 16; TEMP 97.9
[2018-10-17] MEDS ORDERED: ATORVASTATIN 40 MG TAB PO SCH (09:00)
[2018-10-17] MEDS ORDERED: amLODIPine 5 MG TAB PO SCH (09:00)
--- NOTE | 2018-10-17 10:46 | CONS ---
CONSULTATION OPHTHALMOLOGY CONSULT: DATE OF SERVICE: 10/16/2018 CHIEF COMPLAINT: Headache and facial changes on the left side. HISTORY OF PRESENT ILLNESS: Mr. Roque is a 33-year-old male who has noticed in the last 2 days, drooping of the face and headache along the left side of his face. The patient says the onset was sudden and is mild. This has been consistent and has not changed or very recently. There is no associated vision loss or dizziness or other symptoms. REVIEW OF SYSTEMS: As above, otherwise negative. MEDICAL HISTORY: Patient reports he had a transient ischemic attack in the past, which resolved. He denies other medical problems. OPHTHALMIC HISTORY: None. SURGICAL HISTORY: None. MEDICATIONS: None. MEDICAL ALLERGIES: Patient does not report drug allergies. OPHTHALMIC EXAM: There is asymmetry in the face with the left brow lower than the right. There is slight ptosis on the left side. The patient reports a slight asymmetry in sensation in the forehead and in the upper cheek to touch. However, this is not consistent. The anterior chamber is within normal limits. There is no opacity in the lens in either eye. Posterior exam is essentially within normal limits. CT scan, which was performed today was reviewed. There is a hematoma due to an old accident which has been stable for many years. There is also note of a low-lying cerebellar tonsil which is unrelated to his current symptoms, however, may in some situations cause pseudotumor cerebri. This will need to be further evaluated with a neurology consult. 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 There is no specific ocular condition or pathology at this time. The cornea is clear. I recommend evaluation with a neurologist to further evaluate this. Also the incidental findings of low-lying cerebellar tonsil requires optic nerve evaluation in the office to further investigate the possibility of pseudotumor cerebri. This can be done as an outpatient in the next 2 weeks. Thank you for allowing me to participate in this patient's care. I will re-evaluate the patient as an outpatient. Sincerely, MD SERVANDO Hopkins / JENNIFER: [id number] /
--- NOTE | 2018-10-17 11:29 | P.DS ---
Providers Date of admission: 10/16/18 12:11 Attending physician: Vic Spencer Consults: 10/16/18 13:21 Consult Physician Stat Consulting Provider: Corry Carvajal Consult Reason/Comments: facial droop Do you want consulting provider notified?: Yes 10/16/18 14:44 Consult Physician Stat Consulting Provider: Mackenzie Magana Consult Reason/Comments: lt eye drooping Do you want consulting provider notified?: Yes Primary care physician: Vic Spencer Hospital Course: Patient with history of TIA in the past came in with complaints of from left- sided earache left-sided headache. Patient was evaluated by neurology. 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 Etiology is a 2015 9 minutes of the high flow oxygen. After that patient will be discharged on prednisone and Valtrex. Patient may benefit from ENT evaluation to rule out any otitis media. Workup with MRI/MRA and CT of the head are all negative carotid Doppler did not show any significant abnormality. PHYSICAL EXAMINATION: GENERAL: The patient is alert and oriented x3, not in any acute distress. Well developed, well nourished. HEENT: Pupils are round and equally reacting to light. EOMI. No scleral icterus. No conjunctival pallor. Normocephalic, atraumatic. No pharyngeal erythema. No thyromegaly. CARDIOVASCULAR: S1 and S2 present. No murmurs, rubs, or gallops. PULMONARY: Chest is clear to auscultation, no wheezing or crackles. ABDOMEN: Soft, nontender, nondistended, normoactive bowel sounds. No palpable organomegaly. MUSCULOSKELETAL: No joint swelling or deformity. EXTREMITIES: No cyanosis, clubbing, or pedal edema. NEUROLOGICAL: Gross neurological examination did not reveal any focal deficits. Patient weakness in the left side of the face involving the 4 head unable to close eyes SKIN: No rashes. 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 No Action amLODIPine [Norvasc] 5 mg PO DAILY Atorvastatin Calcium [Lipitor] 40 mg PO DAILY Discharge Medication List Atorvastatin Calcium [Lipitor] 40 mg PO DAILY 10/14/18 [History] amLODIPine [Norvasc] 5 mg PO DAILY 10/14/18 [History] Artificial Tears Ointment [Lubrifresh Pm Ointment] 1 gm OPHTHALMIC QID #1 oint...g. 10/17/18 [Rx] predniSONE 10 mg PO DAILY #30 tab 10/17/18 [Rx] valACYclovir HCL [Valtrex] 500 mg PO Q8HR #30 tab 10/17/18 [Rx] Follow up Appointment(s)/Referral(s): Vic Spencer MD [Primary Care Provider] - 10/25/18 1:10 pm (Sunday) Mackenzie Magana MD [STAFF PHYSICIAN] - 10/18/18 11:20 am (Sunday) Gianfranco Delgado MD [STAFF PHYSICIAN] - 1 Week (Office is closed. Please call to schedule appointment) Patient Instructions/Handouts: Saba Palsy (DC) Discharge Disposition: HOME SELF-CARE
--- NOTE | 2018-10-18 13:21 | P.CNNES ---
History of Present Illness Consult date: 10/17/18 Reason for Consult: Facial droop Chief complaint: Facial droop History of Present Illness: REFERRING PHYSICIAN: Dr. Vic Spencer HISTORY OF PRESENT ILLNESS: Thank you for allowing me to evaluate Mr. Ortiz Roque. Mr. Roque is a 33-year-old male with past medical history of TIA in 2018, who presents with left facial weakness along with headache. Patient states that l sunday, he started having this symptom of left facial weakness. Patient at that time came to the emergency room, where he was discharged with headache medication and amoxicillin because there was concern that maybe sinusitis was causing his headache. Patient is still on to work, but he continued to have severe headache along with a droopy eye. He went to his outpatient doctor, who recommended the patient to go back to the emergency room. Patient reports no worsening symptoms of his left facial weakness. Patient's headache has been on and off, at this time 8 out of 10 pain. Headache is mostly on the left side, where he has his facial droop. Patient denies any pain with eye movement, no blurry or double vision. Patient feels that there is a hand covering the upper portion of his face in terms of sensation. Patient also reporting decreased hearing in his left ear compared to the right. Of note, several months ago, he presented to the emergency room as a possible stroke, transfer to [place]. 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 Patient's symptoms completely resolved. Patient states that he had a repeat exam, and normal is able to find his aneurysm that was told several months ago. Patient had recurrent headache, left ptosis, left-sided facial weakness and numbness. PAST MEDICAL HISTORY: TIA PAST SURGICAL HISTORY: Bilateral knee surgery, bilateral temporal hemangioma HOME MEDICATIONS: Amlodipine, atorvastatin ALLERGIES: No known ALLERGIES SOCIAL HISTORY: Current every day smoker, the patient has cut down in terms of the number of cigarettes he smokes. Denies alcohol or drug abuse. FAMILY HISTORY: Mother with fibromyalgia REVIEW OF SYSTEMS: The 14 systems are reviewed and no additional points are identified compared to the review of systems documented history and physical PHYSICAL EXAMINATION: VITAL SIGNS: Temperature 97.9 pulse rate 61 respiratory 16 blood pressure 122/64 O2 saturation 97% on room air GEN.: NAD, pleasant and cooperative HEENT: NCAT, sclera without icterus NECK: Supple, no carotid bruit SKIN AND EXTREMITIES: Warm to touch, no edema NEURO: MENTAL STATUS: Patient alert and oriented to self, place, time. Able to name the current president. Speech fluent, able to name and repeat, following all commands readily. No right and left disorientation, extinction to double simultaneous stimulation, finger agnosia, neglect. CRANIAL NERVES II THROUGH XII: II: Pupils are equal and reactive to light symmetrically. No afferent pupillary defect. Visual brown are intact. III, IV, : Left eye ptosis. Extraocular movements full. No pain with movement No nystagmus. V: Facial sensation decreased to light touch in left V1-2. VII. symmetric smile. Unable to raise his left eyebrow. Patient unable to taste salt on his left anterior tongue compared to his right VIII: Hearing decreased to finger rub in the left ear. IX, X: Symmetric palate elevation. XII: Shoulder shrug intact. XII: Tongue midline without fasciculation or atrophy. MOTOR: Normal bulk/tone. No pronator drift or tremor. Strength is 5/5 throughout all 4 extremities. SENSORY: Intact to light touch, temperature in all 4 extremities. Romberg is negative. REFLEXES: 2+ throughout. Toes are downgoing. COORDINATION: Finger to nose intact. No dysmetria. GAIT: Narrow-based and stable. Able to toe/heel/tandem walk DIAGNOSTIC TESTING: LABORATORY: WBC 13.8 hemoglobin 15.5 platelets 279 sodium 140 potassium 4.0 chloride 106 bicarb 24 BUN 13 creatinine 0.73 glucose 84 AST 20 ALT 30 alk phos 100 total cholesterol 113 LDL 61 HDL 36 triglycerides 82 IMAGING: CT head without contrast 10/16/2018: Left scalp hematoma noted within the parieto-occipital soft tissue. No acute intracranial hemorrhage, mass effect, or midline shift is seen. Low-lying cerebellar tonsils are incidentally seen as well as partially empty sella with her is. MRI brain without contrast 10/16/2018: Negative scan of the brain. Mastoiditis that is worse on the right side. Mild ethmoid sinusitis MRA head without contrast 10/16/2018: Negative MRA exam of the brain Carotid Doppler 10/16/2018: There is antegrade flow in the vertebral arteries. Images to measurements chest close to 0% stenosis in both internal carotid arteries. ASSESSMENT and RECOMMENDATIONS: Mr. Roque is a 33-year-old male with past medical history of TIA in 2018, who presents with left facial weakness along with headache. On exam, patient with left upper facial weakness along with left V1-2 decreased sensation, decreased hearing in the left ear, and decreased sensation to taste on his left tongue. This combination of symptoms indicates what most likely is Saba's palsy plus or [place] Estrada syndrome, but patient with no visible rash. MRI brain w/o contrast and MRA head negative. Patient also low risk of stroke. It has been almost 5 days since symptom onset. Treatment should preferably begin within 3 days of symptom onset, but Clara Estrada is also on the differential. Recommend antiviral and steroid treatment. Patient also complaining of 8/10 R-sided headache along with ptosis, which could be due to cluster headache. high-flow oxygen was provided via non-rebreather mask, with no improvement in his symptoms. Patient needs PCP follow up within 1-2 weeks and Neurology follow-up within 3-4 weeks of discharge. Neurology will sign off at this time. Past Medical History Past Medical History: CVA/TIA Additional Past Medical History / Comment(s): possible torn lt rotator cuff. History of Any Multi-Drug Resistant Organisms: None Reported Past Surgical History: Orthopedic Surgery Additional Past Surgical History / Comment(s): pmh:hemangioma in brain [place] l side, bilat knee. stroke in june 2018 Past Psychological History: No Psychological Hx Reported Smoking Status: Current every day smoker Past Alcohol Use History: Rare Past Drug Use History: None Reported - Past Family History Mother Family Medical History: Fibromyalgia Medications and Allergies Home Medications Medication Instructions Recorded Confirmed Type Atorvastatin Calcium [Lipitor] 40 mg PO DAILY 10/14/18 10/16/18 History amLODIPine [Norvasc] 5 mg PO DAILY 10/14/18 10/16/18 History Artificial Tears Ointment 1 gm OPHTHALMIC QID #1 oint...g. 10/17/18 Rx [Lubrifresh Pm Ointment] predniSONE 10 mg PO DAILY #30 tab 10/17/18 Rx valACYclovir HCL [Valtrex] 500 mg PO Q8HR #30 tab 10/17/18 Rx Allergies Allergy/AdvReac Type Severity Reaction Status Date / Time No Known Allergies Allergy Verified 10/16/18 13:09 Physical Examination - Vital Signs Vital Signs: Vital Signs Temp Pulse Pulse Pulse Resp BP BP 10/17/18 08:00 97.9 F 61 16 122/64 10/17/18 04:00 98.0 F 60 18 123/69 10/16/18 23:37 67 16 10/16/18 23:32 97.9 F 67 16 114/64 10/16/18 19:37 67 18 10/16/18 19:35 97.8 F 67 18 131/74 10/16/18 16:00 66 16 128/76 10/16/18 13:33 74 16 109/68 10/16/18 13:18 74 16 122/60 10/16/18 13:03 76 16 160/112 Pulse Ox 10/17/18 08:00 97 10/17/18 04:00 98 10/16/18 23:37 10/16/18 23:32 95 10/16/18 19:37 10/16/18 19:35 93 L 10/16/18 16:00 10/16/18 13:33 94 L 10/16/18 13:18 93 L 10/16/18 13:03 96 Intake and Output 10/16/18 10/17/18 10/17/18 22:59 06:59 14:59 Intake Total 540 300 Balance 540 300 Intake: Oral 540 300 Other: Voiding Method Toilet Toilet # Voids 1 1 Weight 145.7 kg Results - Laboratory Findings CBC and BMP: 10/16/18 14:44 10/16/18 14:44 Abnormal Lab Findings: Abnormal Labs 10/16/18 10/16/18 14:44 14:44 WBC 13.8 H Neutrophils # 9.2 H HDL Cholesterol 36 L
== END 2018-10-17 13:47 | disposition home or self-care (01) ==
LOC: 3SCARD 12:11
PROVIDERS: ADMIT Family Medicine; ATTEND Family Medicine
DX: R29.810 Facial weakness (principal); H02.402 Unspecified ptosis of left eyelid; R51 Headache; R20.2 Paresthesia of skin; R20.0 Anesthesia of skin; R20.8 Other disturbances of skin sensation; I10 Essential (primary) hypertension; I72.0 Aneurysm of carotid artery; F17.210 Nicotine dependence, cigarettes, uncomplicated; H70.91 Unspecified mastoiditis, right ear; J32.2 Chronic ethmoidal sinusitis; H91.92 Unspecified hearing loss, left ear; Z79.899 Other long term (current) drug therapy; Z86.73 Personal history of transient ischemic attack (TIA), and cerebral infarction without residual deficits; Z86.011 Personal history of benign neoplasm of the brain; Z82.69 Family history of other diseases of the musculoskeletal system and connective tissue; E66.9 Obesity, unspecified; Z68.41 Body mass index [BMI] 40.0-44.9, adult; S00.03XA Contusion of scalp, initial encounter; X58.XXXA Exposure to other specified factors, initial encounter; H92.02 Otalgia, left ear
CPT/HCPCS: 80061; 80053; 85025; 93880; 70450; 70544; 70553; G0378 ×2; G0379; A9585

== ENCOUNTER 2018-12-20 03:34 | Emergency (ER) | payer OTHER ==
[2018-12-20 03:47] VITALS: BP 126/78; PULSE 69; RESP 15; TEMP 97.9
[2018-12-20] MEDS ORDERED: DIPH,PERTUS(ACELL)TETVAC-LF 0.5 ML VIAL IM ONE (04:27)
[2018-12-20] MEDS ORDERED: PROPARACAINE 0.5% OPHTH DROPS 15 ML BTL BOTH EYES STA (04:27)
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
[2018-12-20] MEDS ORDERED: ERYTHROMYCIN 5 MG/GM OPHTH OINT 3.5 GM TUBE BOTH EYES ONE (05:00)
== END 2018-12-20 05:20 | disposition home or self-care (01) ==
LOC: EC 03:34
DX: H16.133 Photokeratitis, bilateral (principal); F17.200 Nicotine dependence, unspecified, uncomplicated; Z86.73 Personal history of transient ischemic attack (TIA), and cerebral infarction without residual deficits; Z79.899 Other long term (current) drug therapy; Z53.29 Procedure and treatment not carried out because of patient's decision for other reasons
CPT/HCPCS: 99283

== ENCOUNTER 2019-01-05 22:52 | Emergency (ER) | payer OTHER ==
[2019-01-05 23:00] VITALS: BP 149/72; PULSE 67; RESP 18; TEMP 98.2
--- NOTE | 2019-01-05 23:33 | XR ---
EXAMINATION TYPE: XR foot complete LT DATE OF EXAM: 01/05/2019 COMPARISON: NONE HISTORY: Foot pain TECHNIQUE: 3 views FINDINGS: There are plantar and Achilles calcaneal spurs. Metatarsals are intact. There is minor spur ring at the first MP joint. I see no fracture nor dislocation. IMPRESSION: Calcaneal spurring. No fracture seen.
[2019-01-05] MEDS ORDERED: KETOROLAC 60 MG/2 ML VIAL IM STA (23:48)
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
== END 2019-01-06 00:07 | disposition home or self-care (01) ==
LOC: EC 22:52
DX: S93.602A Unspecified sprain of left foot, initial encounter (principal); F17.200 Nicotine dependence, unspecified, uncomplicated; Z86.73 Personal history of transient ischemic attack (TIA), and cerebral infarction without residual deficits
CPT/HCPCS: 73630; 99284; 29515; 96372; J1885

== ENCOUNTER → 2019-03-14 | Outpatient (CLI) | payer OTHER ==
--- NOTE | 2019-03-14 23:56 | MR ---
EXAMINATION TYPE: MR ankle LT wo con DATE OF EXAM: 03/14/2019 COMPARISON: None HISTORY: pain L ankle/foot Multiplanar multiecho imaging of the left ankle was performed without contrast. FINDINGS: Achilles tendon is intact. Plantar fascia appears intact. There is mild ankle joint effusion. There i s subcutaneous edema around the lateral and anterior aspect of the ankle joint. The medial and lateral flexor tendons of the ankle appear intact. Joint spaces are fairly normal. The collateral ligaments appear intact. I see no focal bone destruction. There is minor spurring at the talonavicular joint. There are plantar and Achilles calcaneal spurs. IMPRESSION: Small ankle joint effusion consistent with nonspecific mild synovitis. No fracture seen. Mild subcuta neous edema. No evidence of ligament or tendon tear. Calcaneal spurring.
== END | disposition home or self-care (01) ==
LOC: RADMRIMAIN 06:12
PROVIDERS: ATTEND Physician Assistant
DX: M77.32 Calcaneal spur, left foot (principal); M25.472 Effusion, left ankle

== ENCOUNTER 2019-08-31 19:26 | Emergency (ER) | payer OTHER ==
[2019-08-31 19:32] VITALS: RESP 16; TEMP 98.6
[2019-08-31] MEDS ORDERED: SODIUM CHLORIDE 0.9% 1,000 ML IV STA (20:08)
[2019-08-31] MEDS ORDERED: diphenhydrAMINE 50 MG/ML 1 ML VIAL IVP STA (20:08)
[2019-08-31] MEDS ORDERED: METOCLOPRAMIDE 5 MG/ML 2 ML VIAL IVP STA (20:08)
--- NOTE | 2019-08-31 20:30 | ED ---
General Adult HPI - General Source: patient, RN notes reviewed Mode of arrival: ambulatory Limitations: no limitations <Timo Elizondo - Last Filed: 08/31/19 22:13> <Francesca Wilson - Last Filed: 09/04/19 16:35> - General Chief complaint: Neuro Symptoms/Deficit Stated complaint: Lt side facial pain Time Seen by Provider: 08/31/19 19:40 - History of Present Illness Initial comments: 34-year-old male with a past medical history of TIA, complex migraines, [place]oney Palsy presents to the emergency room for a chief complaint of headache and left- sided facial droop. Patient reports this has been ongoing for about 48 hours now. Patient states this has happened several times before and he was told that it was related to his headaches. States it usually resolves after a day or so but has lasted for more than 5 days before. Patient denies any weakness in the arms or legs. Denies visual changes but does admit to drooping eyelid. Denies any difficulty speaking. Denies any difficulty ambulating. Denies any weakness in the arms or legs. Patient states he has been under a lot of stress lately and believes it could be related. Recently found his is cheating on him.Patient has no other complaints at this time including shortness of breath, chest pain, abdominal pain, nausea or vomiting, or visual changes. (Timo Elizondo) - Related Data Home Medications Medication Instructions Recorded Confirmed Atorvastatin Calcium [Lipitor] 40 mg PO DAILY 10/14/18 01/05/19 amLODIPine [Norvasc] 5 mg PO DAILY 10/14/18 01/05/19 Previous Rx's Medication Instructions Recorded predniSONE 50 mg PO DAILY #5 tablet 08/31/19 Allergies Allergy/AdvReac Type Severity Reaction Status Date / Time No Known Allergies Allergy Verified 08/31/19 19:31 Review of Systems ROS Other: All systems not noted in ROS Statement are negative. <Timo Elizondo - Last Filed: 08/31/19 22:13> ROS Other: All systems not noted in ROS Statement are negative. <Francesca Wilson - Last Filed: 09/04/19 16:35> ROS Statement: Those systems with pertinent positive or pertinent negative responses have been documented in the HPI. Past Medical History Past Medical History: CVA/TIA Additional Past Medical History / Comment(s): possible torn lt rotator cuff. 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 stroke in june 2018 Past Psychological History: No Psychological Hx Reported Smoking Status: Current every day smoker Past Alcohol Use History: Rare Past Drug Use History: None Reported - Past Family History Mother Family Medical History: Fibromyalgia <Timo Elizondo P - Last Filed: 08/31/19 22:13> General Exam Limitations: no limitations General appearance: alert, in no apparent distress Head exam: Present: atraumatic, normocephalic, normal inspection Eye exam: Present: normal appearance, PERRL, EOMI. Absent: scleral icterus, conjunctival injection, periorbital swelling ENT exam: Present: normal exam, mucous membranes moist, other (Patient has left- sided facial weakness that includes the forehead and eyebrow.) Neck exam: Present: normal inspection, full ROM. Absent: tenderness, meningismus, lymphadenopathy Respiratory exam: Present: normal lung sounds bilaterally. Absent: respiratory distress, wheezes, rales, rhonchi, stridor Cardiovascular Exam: Present: regular rate, normal rhythm, normal heart sounds. Absent: systolic murmur, diastolic murmur, rubs, gallop, clicks GI/Abdominal exam: Present: soft, normal bowel sounds. Absent: distended, tenderness, guarding, rebound, rigid Neurological exam: Present: alert, oriented X3, normal gait, other (GCS 15) Expanded Patient oriented to: Present: person, place, time Speech: Present: fluid speech Cranial nerves: EOM's Intact: Normal, Gag Reflex: Normal, Tongue Deviation: Normal, Nystagmus: Normal, Facial Palsy without Forehead Movement: Normal, Abnormal Left Cerebellar function: Finger to Nose: Normal, Heel to [place]: Normal, Romberg: Normal Upper motor neuron: Silverio Neglect: Normal, Pronator Drift: Normal Sensory exam: Upper Extremity Light Touch: Normal, Upper Extremity Pin Prick: Normal, Lower Extremity Light Touch: Normal, Lower Extremity Pin Prick: Normal Motor strength exam: RUE: 5 (No drift), LUE: 5 (No drift), RLE: 5 (No drift), LLE: 5 (No drift) Eye Response: (4) open spontaneously Motor Response: (6) obeys commands Verbal Response: (5) oriented Rodrigo Total: 15 <Timo Elizondo - Last Filed: 08/31/19 22:13> Course Vital Signs 08/31/19 08/31/19 08/31/19 19:30 19:45 20:30 Temperature 98.6 F Pulse Rate 89 80 94 Respiratory 16 16 16 Rate Blood Pressure 157/91 132/96 109/68 O2 Sat by Pulse 93 L 96 95 Oximetry 08/31/19 22:37 Temperature 98.6 F Pulse Rate 94 Respiratory 16 Rate Blood Pressure 121/64 O2 Sat by Pulse 95 Oximetry Medical Decision Making <Timo Elizondo - Last Filed: 08/31/19 22:13> <Francesca Wilson - Last Filed: 09/04/19 16:35> - Medical Decision Making Brain MRI on 10/16/2018 with and without contrast showed a negative MR brain. Mastoiditis without changes significant compared to old exam. Head MRA at that time was negative. Carotid Dopplers were performed which suggests 0% stenosis both internal carotid arteries. Patient was thought to have a migraine or Saba's palsy colostomy was admitted for the same exact symptoms. He was treated with antivirals, steroids and it did eventually resolve. Pt was evaluated on presentation. He does have left-sided facial droop with drooping eyelid. Left eyebrow and left-sided forehead is included in weakness. Sensation somewhat decreased. No weakness of the arms. No drift. Patient ambulatory. Normal speech. Patient states "this is not a stroke." States he has been evaluated for that in the past and has this quite often with headaches. Patient states he was given steroids in the past for this and it went away. Patient refuses stroke workup stating he is only here for pain relief. Patient did eventually agree to a CT brain which was negative. He did have extensive workup as mentioned above within the past year for the same symptoms. Patient was given pain management here and actually had significant improvement in pain. He is requesting discharge because other patients are annoying him. He did agree to prednisone before he goes. Patient will follow up with his primary care. He will be given 2 days off of work. He'll return here for any worsening symptoms. (Timo Elizondo) I was available for consultation in the emergency department. The history and physical exam were done by the midlevel provider. I was consulted for this patients care. I reviewed the case with the midlevel provider and based on their presentation of the patient, I agree with the assessment, medical decision making and plan of care as documented. Patient presents for evaluation of his symptoms specifically requesting to not be evaluated for a stroke as he has had multiple previous evaluations for same complaint. Chart was dictated using [employer] dictation software. Attempts were made to correct any dictation errors however some typographical errors may persist. Patient was seen during a national state of emergency due to the Covid-19 pandemic. (Francesca Wilson) Disposition Is patient prescribed a controlled substance at d/c from ED?: No Time of Disposition: 22:07 <Timo Elizondo - Last Filed: 08/31/19 22:13> <Francesca Wilson - Last Filed: 09/04/19 16:35> Clinical Impression: Headache Disposition: HOME SELF-CARE Condition: Good Instructions (If sedation given, give patient instructions): Migraine Headache (ED) Additional Instructions: Please take steroid as directed starting tomorrow because we gave you an IV dose here. Do not take Motrin with this. Follow up with primary care tomorrow. If you have any worsening symptoms return here to the emergency room. Prescriptions: predniSONE 50 mg PO DAILY #5 tablet Referrals: Vic Spencer MD [Primary Care Provider] - 1-2 days
--- NOTE | 2019-08-31 20:35 | CT ---
EXAMINATION TYPE: CT brain wo con DATE OF EXAM: 08/31/2019 COMPARISON: 10/16/2018 HISTORY: Facial numbness with prior CVA CT DLP: 1172.4 mGycm Automated exposure control for dose reduction was used. Ventricles and sulci appear normal. There is no mass effect nor midline shift. There is no sign of in tracranial hemorrhage. The calvarium is intact. There is no evidence of cerebral edema. IMPRESSION: Negative head CT scan. No change.
[2019-08-31] MEDS ORDERED: KETOROLAC 30 MG/ML 1 ML VIAL IVP STA (20:46)
[2019-08-31 21:01] VITALS: PULSE 94
[2019-08-31] MEDS ORDERED: methylPREDNISolone SOD SUCCI 125 MG/2 ML VIAL IV STA (22:08)
[2019-08-31 22:38] VITALS: BP 121/64
== END 2019-08-31 22:38 | disposition home or self-care (01) ==
LOC: EC 19:26
DX: R51 Headache (principal); R29.810 Facial weakness; H02.402 Unspecified ptosis of left eyelid; F17.200 Nicotine dependence, unspecified, uncomplicated; Z86.73 Personal history of transient ischemic attack (TIA), and cerebral infarction without residual deficits; Z86.69 Personal history of other diseases of the nervous system and sense organs; Z53.29 Procedure and treatment not carried out because of patient's decision for other reasons; Z79.899 Other long term (current) drug therapy
CPT/HCPCS: 70450; 99284; 96374; 96375 ×3; 96361; J1200; J2765; J2930; J1885

== ENCOUNTER 2020-07-14 22:41 | Emergency (ER) | payer OTHER ==
[2020-07-14 22:55] VITALS: BP 135/86; PULSE 100; RESP 18; TEMP 98.7
[2020-07-14] MEDS ORDERED: ONDANSETRON ODT 4 MG TAB PO STA (23:02)
--- NOTE | 2020-07-14 23:03 | ED ---
General Adult HPI - General Chief complaint: Fall Stated complaint: [facility]-Fall Time Seen by Provider: 07/14/20 22:45 Source: EMS, RN notes reviewed Mode of arrival: EMS Limitations: no limitations - History of Present Illness Initial comments: 34-year-old male with a past medical history of TIA presents to the emergency room for a chief complaint of head injury. Patient reports that he went to take a step backwards and tripped and fell. He hit the back of his head. He does not think he lost consciousness. Patient is complaining of left-sided neck pain. Patient did have 2 episodes of vomiting after the fall. Patient states he now feels much better. No nausea vomiting. Patient does not believe he takes blood thinners. Upon review of previous charts there are no blood thinners and his medication list. Patient has no other complaints at this time including shortness of breath, chest pain, abdominal pain, headache, or visual changes. - Related Data Home Medications Medication Instructions Recorded Confirmed Acetaminophen Tab [Tylenol Tab] 1,000 mg PO Q6HR PRN 07/14/20 07/14/20 Ibuprofen [Motrin Ib] 600 mg PO Q8H PRN 07/14/20 07/14/20 Topiramate [Topamax] 100 mg PO DAILY 07/14/20 07/14/20 Allergies Allergy/AdvReac Type Severity Reaction Status Date / Time No Known Allergies Allergy Verified 08/31/19 19:31 Review of Systems ROS Statement: Those systems with pertinent positive or pertinent negative responses have been documented in the HPI. ROS Other: All systems not noted in ROS Statement are negative. Past Medical History Past Medical History: CVA/TIA Additional Past Medical History / Comment(s): possible torn lt rotator cuff. bialteral knee, [place] Palsy History of Any Multi-Drug Resistant Organisms: None Reported Past Surgical History: Orthopedic Surgery Additional Past Surgical History / Comment(s): pmh:hemangioma in brain [place]ian[place] area l side, bilat knee. stroke in june 2018 Past Psychological History: No Psychological Hx Reported Past Alcohol Use History: Rare Past Drug Use History: None Reported - Past Family History Mother Family Medical History: Fibromyalgia General Exam Limitations: no limitations General appearance: alert, in no apparent distress Head exam: Present: normocephalic. Absent: atraumatic (Small hematoma noted to the left posterior parietal scalp. No laceration.) Eye exam: Present: normal appearance, PERRL, EOMI. Absent: scleral icterus, conjunctival injection, periorbital swelling ENT exam: Present: normal exam, mucous membranes moist Neck exam: Present: tenderness (Left-sided paraspinal cervical tenderness. No C-spine tenderness.), full ROM. Absent: meningismus, lymphadenopathy Respiratory exam: Present: normal lung sounds bilaterally. Absent: respiratory distress, wheezes, rales, rhonchi, stridor Cardiovascular Exam: Present: regular rate, normal rhythm, normal heart sounds. Absent: systolic murmur, diastolic murmur, rubs, gallop, clicks Back exam: Absent: vertebral tenderness Neurological exam: Present: alert Course Vital Signs 07/14/20 22:46 Temperature 98.7 F Pulse Rate 100 Respiratory 18 Rate Blood Pressure 135/86 O2 Sat by Pulse 95 Oximetry Medical Decision Making - Medical Decision Making Vitals are stable. Patient has no focal neurologic deficits. Small contusion potentially noted to the left parietal scalp. CT of the brain is normal. No fracture of the cervical spine. There is apparently right-sided mastoiditis that is unchanged however it is not clinically evident. Patient does not complain of this. He does not have any mastoid tenderness. At this time patient likely has concussion. He will be given a few days off work. He will follow up with his doctor. He will return here for any worsening symptoms. Disposition Clinical Impression: Head injury, Concussion Disposition: HOME SELF-CARE Condition: Good Instructions (If sedation given, give patient instructions): Concussion (ED) Additional Instructions: Please take Tylenol Motrin for pain. Please rest as much as possible. Follow- up with your doctor. Return to the emergency room for any worsening symptoms. Is patient prescribed a controlled substance at d/c from ED?: No Referrals: Vic Spencer MD [Primary Care Provider] - 1-2 days Time of Disposition: 00:22
--- NOTE | 2020-07-15 00:06 | CT ---
EXAMINATION TYPE: CT brain [place] wo con DATE OF EXAM: 07/14/2020 COMPARISON: 08/23/2019 CT brain HISTORY: Fall to left posterior head CT DLP: 1819.70 mGycm Automated exposure control for dose reduction was used. Ventricles and sulci appear normal. There is no mass effect nor midline shift. There is no sign of in tracranial hemorrhage. Calvarium is intact. There is no evidence of cerebral edema. There is mucosal thickening in the right mastoid sinus. The cervical vertebra show some straightening. Disc spaces are normal. Posterior elements are intact. There is no compression fracture. Skull base is intact. Prevertebral soft tissues are intact. IMPRESSION: Normal CT scan of the brain. Right-sided mastoiditis. Unchanged. Mild straightening of the cervical spine. No fracture seen.
== END 2020-07-15 01:08 | disposition home or self-care (01) ==
LOC: EC 22:41
DX: S06.0X0A Concussion without loss of consciousness, initial encounter (principal); W01.0XXA Fall on same level from slipping, tripping and stumbling without subsequent striking against object, initial encounter; Z86.73 Personal history of transient ischemic attack (TIA), and cerebral infarction without residual deficits
CPT/HCPCS: 70450; 72125; 99283

== ENCOUNTER 2021-11-27 04:42 | Emergency (ER) | payer OTHER ==
[2021-11-27 05:10] VITALS: BP 125/83; PULSE 66; RESP 18; TEMP 97.9
[2021-11-27] MEDS ORDERED: PROPARACAINE 0.5% OPHTH DROPS 15 ML BTL BOTH EYES STA (06:50)
--- NOTE | 2021-11-27 06:51 | ED ---
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 Denies any foreign body sensation no trauma states she is photophobic patient states given his eyes closed symptoms resolved. - Related Data Home Medications Medication Instructions Recorded Confirmed Acetaminophen Tab [Tylenol Tab] 1,000 mg PO Q6HR PRN 07/14/20 07/14/20 Ibuprofen [Motrin Ib] 600 mg PO Q8H PRN 07/14/20 07/14/20 Topiramate [Topamax] 100 mg PO DAILY 07/14/20 07/14/20 Allergies Allergy/AdvReac Type Severity Reaction Status Date / Time No Known Allergies Allergy Verified 11/27/21 05:10 Review of Systems ROS Statement: Those systems with pertinent positive or pertinent negative responses have been documented in the HPI. ROS Other: All systems not noted in ROS Statement are negative. Past Medical History Past Medical History: CVA/TIA Additional Past Medical History / Comment(s): possible torn lt rotator cuff. bialteral knee, [place] Palsy History of Any Multi-Drug Resistant Organisms: None Reported Past Surgical History: Orthopedic Surgery Additional Past Surgical History / Comment(s): pmh:hemangioma in brain [place] area l side, bilat knee. stroke in june 2018 Past Psychological History: No Psychological Hx Reported Smoking Status: Never smoker Past Alcohol Use History: Rare Past Drug Use History: None Reported - Past Family History Mother Family Medical History: Fibromyalgia General Exam Limitations: no limitations General appearance: alert, in no apparent distress Head exam: Present: atraumatic, normocephalic, normal inspection Eye exam: Present: PERRL, EOMI, conjunctival injection. Absent: normal appearance, scleral icterus, periorbital swelling ENT exam: Present: normal exam, normal oropharynx, mucous membranes moist Neck exam: Present: normal inspection, full ROM. Absent: tenderness, meningismus, lymphadenopathy Respiratory exam: Present: normal lung sounds bilaterally. Absent: respiratory distress, wheezes, rales, rhonchi, stridor Cardiovascular Exam: Present: regular rate, normal rhythm, normal heart sounds. Absent: systolic murmur, diastolic murmur, rubs, gallop, clicks Course Vital Signs 11/27/21 05:07 Temperature 97.9 F Pulse Rate 66 Respiratory 18 Rate Blood Pressure 125/83 O2 Sat by Pulse 98 Oximetry Medical Decision Making - Medical Decision Making Patient had full relief with proparacaine eye drops, patient was given erythromycin ointment for soothing advised take anti-inflammatories return parameters were discussed. Disposition Clinical Impression: Photokeratitis Disposition: HOME SELF-CARE Condition: Stable Instructions (If sedation given, give patient instructions): Corneal Flash [place] (ED) Additional Instructions: Please return to the Emergency Department if symptoms worsen or any other concerns. Apply ointment every 4 hours, take anti-inflammatories as directed. Is patient prescribed a controlled substance at d/c from ED?: No Referrals: Vic Spencer MD [Primary Care Provider] - 1-2 days Time of Disposition: 06:51
[2021-11-27] MEDS ORDERED: ERYTHROMYCIN 5 MG/GM OPHTH OINT 1 GM TUBE BOTH EYES STA (06:56)
== END 2021-11-27 07:12 | disposition home or self-care (01) ==
LOC: EC 04:42
DX: H16.133 Photokeratitis, bilateral (principal)
CPT/HCPCS: 99282

== ENCOUNTER 2023-03-11 20:14 | Emergency (ER) | payer OTHER ==
[2023-03-11 20:27] VITALS: RESP 18; TEMP 98.3
[2023-03-11] MEDS ORDERED: ACET/COD 300 MG/30 MG STARTER PACK 6 TAB BTL PO STA (21:39)
--- NOTE | 2023-03-11 21:39 | ED ---
General Adult HPI - General Chief complaint: Extremity Injury, Lower Stated complaint: Lt knee pain Time Seen by Provider: 03/11/23 20:25 Source: patient, RN notes reviewed Mode of arrival: ambulatory Limitations: no limitations - History of Present Illness Initial comments: 37-year-old male with no significant past medical history presents the emergency department the chief complaint of left knee pain. Patient reports that he has injured his left knee in the past and received steroid injections. He reports that his left knee has been causing him pain and having intermittent swelling on and off for the last 10 days. He denies any known trauma or injury. He denies any numbness, tingling or weakness in his extremity. He hasn't taken Tylenol Motrin at home for his pain without significant improvement. - Related Data Home Medications Medication Instructions Recorded Confirmed Acetaminophen Tab [Tylenol Tab] 1,000 mg PO Q6HR PRN 07/14/20 07/14/20 Ibuprofen [Motrin Ib] 600 mg PO Q8H PRN 07/14/20 07/14/20 Topiramate [Topamax] 100 mg PO DAILY 07/14/20 07/14/20 Previous Rx's Medication Instructions Recorded Ibuprofen [Motrin] 800 mg PO Q8H #30 tab 03/11/23 Allergies Allergy/AdvReac Type Severity Reaction Status Date / Time No Known Allergies Allergy Verified 11/27/21 05:10 Review of Systems ROS Statement: Those systems with pertinent positive or pertinent negative responses have been documented in the HPI. ROS Other: All systems not noted in ROS Statement are negative. Past Medical History Past Medical History: CVA/TIA Additional Past Medical History / Comment(s): possible torn lt rotator cuff. 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 stroke in june 2018 Past Psychological History: No Psychological Hx Reported Smoking Status: Never smoker Past Alcohol Use History: Rare Past Drug Use History: None Reported - Past Family History Mother Family Medical History: Fibromyalgia General Exam - General Exam Comments Initial Comments: General: Alert, in no acute distress Head: atraumatic normocephalic. Eyes PERRL, EOMI intact, mucous membranes moist Respiratory: Lungs clear to auscultation bilaterally Cardiovascular: Heart rate regular rate and rhythm Abdominal: Soft without guarding or rebound Extremities: Normal inspection with full range of motion and normal capillary refill, left knee is without market swelling, erythema or ecchymosis. Full range of motion. Homans sign negative. Distal neurovascular intact. Neuroogic: alert and oriented 3, CN II-XII intact, able to ambulate with steady gait Skin: warm dry and intact with normal color Limitations: no limitations Course Vital Signs 03/11/23 20:14 Temperature 98.3 F Pulse Rate 74 Respiratory 18 Rate Blood Pressure 143/82 O2 Sat by Pulse 97 Oximetry Medical Decision Making - Medical Decision Making Was pt. sent in by a medical professional or institution (, TANNER, PHOTOVOLTAIC FABRICATION TECHNICIAN, urgent care, hospital, or usp...) When possible be specific @ -[No] Did you speak to anyone other than the patient for history (EMS, parent, family, police, friend...)? What history was obtained from this source @ -[No] Did you review nursing and triage notes (agree or disagree)? Why? @ -[I reviewed and agree with nursing and triage notes] Were old charts reviewed (outside hosp., previous admission, EMS record, old EKG, old radiological studies, urgent care reports/EKG's, usp records)? Report findings @ -[No old charts were reviewed] Differential Diagnosis (chest pain, altered mental status, abdominal pain women, abdominal pain men, vaginal bleeding, weakness, fever, dyspnea, syncope, headache, dizziness, GI bleed, back pain, seizure, CVA, palpatations, mental health, musculoskeletal)? @ -[not applicable] EKG interpreted by me (3pts min.). @ -[As above] X-rays interpreted by me (1pt min.). @ -[None done] CT interpreted by me (1pt min.). @ -[None done] U/S interpreted by me (1pt. min.). @ -[None done] What testing was considered but not performed or refused? (CT, X-rays, U/S, labs)? Why? @ -[None] What meds were considered but not given or refused? Why? @ -[None] Did you discuss the management of the patient with other professionals (professionals i.e. , PA, PHOTOVOLTAIC FABRICATION TECHNICIAN, lab, RT, psych nurse, social and human services assistant, thermoforming operator, teacher, correctional probation officer, disability case manager)? Give summary @ -[No] Was smoking cessation discussed for >3mins.? @ -[No] Was critical care preformed (if so, how long)? @ -[No] Were there social determinants of health that impacted care today? How? (Homelessness, low income, unemployed, alcoholism, drug addiction, transportation, low edu. Level, literacy, decrease access to med. care, [facility], rehab)? @ -[No] Was there de-escalation of care discussed even if they declined (Discuss DNR or withdrawal of care, Hospice)? DNR status @ -[No] What co-morbidities impacted this encounter? (DM, HTN, Smoking, COPD, CAD, Cancer, CVA, ARF, Chemo, Hep., AIDS, mental health diagnosis, sleep apnea, morbid obesity)? @ -[None] Was patient admitted / discharged? Hospital course, mention meds given and route, prescriptions, significant lab abnormalities, going to OR and other pertinent info. @ -Discharged. This is a pleasant 37-year-old male who presents the emergency department with left knee pain. Patient had a thorough history and physical exam performed. Physical exam essentially unremarkable. There is no obvious deformity marked erythema, ecchymosis. There is no crepitus noted. Patient has full range of motion. Patient is able to ambulate with a steady gait. Homans sign is negative. Patient was offered x-rays however he declined. Patient provided work note and pain management. Strict return parameters were discussed. Patient encouraged to have close follow-up with orthopedist. Case is discussed with Dr. Busby, ED attending increased temperature, Undiagnosed new problem with uncertain prognosis? @ -[No] Drug Therapy requiring intensive monitoring for toxicity (Heparin, Nitro, Insulin, Cardizem)? @ -[No] Were any procedures done? @ -[No] Diagnosis/symptom? @ -Left knee pain Acute, or Chronic, or Acute on Chronic? @ -Acute Uncomplicated (without systemic symptoms) or Complicated (systemic symptoms)? @ -Uncomplicated Side effects of treatment? @ -[No] Exacerbation, Progression, or Severe Exacerbation? @ -[No] Poses a threat to life or bodily function? How? (Chest pain, [place], [place], pneumonia, PE, COPD, DKA, ARF, appy, cholecystitis, CVA, Diverticulitis, Homicidal, Suicidal, threat to staff... and all critical care pts) @ Low likelihood Disposition Clinical Impression: Left medial knee pain Disposition: HOME SELF-CARE Condition: Stable Instructions (If sedation given, give patient instructions): Knee Sprain (ED), Knee Pain (ED) Additional Instructions: PLease elevate left knee when able Please take tylenol or motrin for pain Please follow up with orthopedist at soonest convenience PLease return if worsening pain or symptoms develop Prescriptions: Ibuprofen [Motrin] 800 mg PO Q8H #30 tab Is patient prescribed a controlled substance at d/c from ED?: No Referrals: Vic Spencer MD [Primary Care Provider] - 1-2 days Jose Jacome DO [Doctor of Osteopathic Medicine] - 1-2 days Time of Disposition: 21:38
[2023-03-11 22:04] VITALS: BP 148/89; PULSE 64
== END 2023-03-11 21:52 | disposition home or self-care (01) ==
LOC: EC 20:14
DX: M25.562 Pain in left knee (principal)
CPT/HCPCS: 99283

== ENCOUNTER → 2023-05-17 | Outpatient (CLI) | payer OTHER ==
--- NOTE | 2023-05-17 14:04 | US ---
EXAMINATION TYPE: US extremity nonvasc complete LT (MSK knee) DATE OF EXAM: 05/17/2023 COMPARISON: No radiographic correlation available CLINICAL INDICATION: Male, 37 years old with history of M25.562 PAIN IN LEFT KNEE; TECHNIQUE: Multiple sonographic images of the anterior, lateral, and medial aspect of the knee are o btained. FINDINGS: * The extensor mechanism is intact. * No suprapatellar joint effusion. * Scanning along the anterolateral aspect of the suprapatellar region shows some minimal nonspecific subcutaneous edema. * Medial scanning at the patient's symptomatic site shows medial compartment joint space narrowing w ith prominent marginal spurring and an extruded body of the medial meniscus. Mass effect onto the ove rlying MCL fibers. IMPRESSION: Targeted scanning of the patient's symptomatic site demonstrates medial compartmental osteoarthrosis with a torn and extruded body of the medial meniscus.
== END | disposition home or self-care (01) ==
LOC: RADUSWWP 13:29
PROVIDERS: ATTEND Family Medicine
DX: M17.12 Unilateral primary osteoarthritis, left knee (principal); S83.242A Other tear of medial meniscus, current injury, left knee, initial encounter; X58.XXXA Exposure to other specified factors, initial encounter

== ENCOUNTER 2023-06-15 19:14 | Emergency (ER) | payer OTHER ==
[2023-06-15 20:00] VITALS: TEMP 98
[2023-06-15] MEDS: HYDROmorphone 1 MG/ML 1 ML SYRINGE IVP STA (20:29)
[2023-06-15] MEDS: KETOROLAC 15 MG/ML 1 ML VIAL IVP STA (20:31)
[2023-06-15] MEDS: ONDANSETRON 4 MG/2 ML VIAL IVP STA (20:32)
[2023-06-15] MEDS: SODIUM CHLORIDE 0.9% 1,000 ML IV ONE (20:39)
--- NOTE | 2023-06-15 22:38 | CT ---
EXAMINATION TYPE: CT abdomen pelvis wo con CT DLP: 2119.9 mGycm, Automated exposure control for dose reduction was used. DATE OF EXAM: 06/15/2023 8:47 PM COMPARISON: None. CLINICAL INDICATION:Male, 37 years old with history of flank pain; Right flank pain x 6 hours, nausea and vomiting TECHNIQUE: Axial CT of the abdomen and pelvis. Sagittal and coronal reformats were created on a [employer] workstation. Contrast used: mL of , (none if empty) Oral contrast used: without Oral Contrast (none if empty) FINDINGS: LOWER CHEST: Unremarkable ABDOMEN LIVER: Unremarkable GALLBLADDER AND BILE DUCTS: Unremarkable gallbladder. No biliary ductal dilatation. PANCREAS: Unremarkable. SPLEEN: Unremarkable. ADRENAL GLANDS: Unremarkable. KIDNEYS AND URETERS: Developmental oblique lie of the right kidney. There is mild to moderate distent ion of the right renal pelvis, with mild prominence of the upper ureter and there is significant pauly nephric and periureteral fat stranding. However the distal ureter appears minimally dilated to the bl adder. No renal or ureteral calculi are seen. There is however a 2.5 mm calculus in the posterior gorge dder lumen which seems removed from the UVJ and may be a recently passed stone. On the left, there ma y be 1 or 2 punctate renal calculi. No ureteral calculi or hydronephrosis is seen. PELVIS BLADDER: As above REPRODUCTIVE: Unremarkable. ABDOMEN & PELVIS STOMACH AND BOWEL: Fluid-filled stomach. No evidence of bowel obstruction or other acute abnormality. Appendix appears within normal limits. Mild/moderate stool throughout the colon without focal abnorm ality demonstrated. PERITONEUM/RETROPERITONEUM: No evidence of pneumoperitoneum or free fluid. VASCULATURE: Aorta and major branches are grossly unremarkable. No AAA. Retroaortic left renal vein noted. LYMPH NODES: No enlarged nodes by CT size criteria. SOFT TISSUE/ABDOMINAL WALL: Some laxity along the anterior abdominal wall musculature. Small to moder ate size fat containing umbilical region hernia. Small bilateral fat-containing inguinal hernias. MUSCULOSKELETAL: No acute osseous abnormalities. Mild disc degeneration changes are present throughou t the thoracolumbar spine. Mild levocurvature throughout the imaged spine. IMPRESSION: Findings likely represent recently passed calculus within the bladder, and residual changes of obstru ctive uropathy involving the right kidney and ureter. Correlate clinically to exclude superimposed in fection.
[2023-06-15 22:39] LABS: Appearance,Urine Clear (Clear); Bilirubin,Urine Negative (Negative); Blood,Urine Small (Negative); Color,Urine Light Yellow; Glucose,Urine (UA) Negative (Negative); Ketones,Urine Negative (Negative); Leukocyte Esterase,Urine Negative (Negative); Mucus,Urine Rare /hpf; Nitrite,Urine Negative (Negative); Protein,Urine Negative (Negative); RBC,Urine 1 /hpf (0-5); Specific Gravity,Urine 1.029 (1.001-1.035); Urobilinogen,Urine <2.0 mg/dL (<2.0); WBC,Urine 1 /hpf (0-5)
[2023-06-15] MEDS: MORPHINE SULFATE 4 MG/ML SYRINGE IVP STA (23:07)
[2023-06-15] MEDS: TAMSULOSIN 0.4 MG CAP.ER.24H PO STA (23:09)
[2023-06-15 23:19] VITALS: BP 153/96; PULSE 66; RESP 18
--- NOTE | 2023-06-15 23:46 | ED ---
Male Urogenital HPI - General Chief complaint: Urogenital Stated complaint: SOB back pain NV Time Seen by Provider: 06/15/23 20:09 Source: patient Mode of arrival: ambulatory Limitations: no limitations - History of Present Illness Initial comments: 37-year-old male presenting with chief plaint of right-sided flank pain. Pain started yesterday and worsened today. It is a sharp stabbing pain. Radiates down to his groin. He admits to urinary urgency and frequency. No dysuria. No fevers or chills. He admits to nausea and vomiting. No history of kidney stones. - Related Data Home Medications Medication Instructions Recorded Confirmed Acetaminophen Tab [Tylenol Tab] 1,000 mg PO Q6HR PRN 07/14/20 07/14/20 Ibuprofen [Motrin Ib] 600 mg PO Q8H PRN 07/14/20 07/14/20 Topiramate [Topamax] 100 mg PO DAILY 07/14/20 07/14/20 Previous Rx's Medication Instructions Recorded Ibuprofen [Motrin] 800 mg PO Q8H #30 tab 03/11/23 HYDROcodone/APAP 7.5-325MG [[place] 1 tab PO Q6HR PRN 3 Days #12 tab 06/15/23 7.5-325] Ondansetron Odt [Zofran Odt] 4 mg PO Q8HR PRN #20 tab 06/15/23 Tamsulosin [Flomax] 0.4 mg PO DAILY #5 cap 06/15/23 Allergies Allergy/AdvReac Type Severity Reaction Status Date / Time No Known Allergies Allergy Verified 06/15/23 19:38 Review of Systems ROS Statement: Those systems with pertinent positive or pertinent negative responses have been documented in the HPI. ROS Other: All systems not noted in ROS Statement are negative. Past Medical History Past Medical History: CVA/TIA Additional Past Medical History / Comment(s): possible torn lt rotator cuff. 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 stroke in june 2018 Past Psychological History: No Psychological Hx Reported Smoking Status: Never smoker, V[place] Past Alcohol Use History: Rare Past Drug Use History: None Reported - Past Family History Mother Family Medical History: Fibromyalgia General Exam Limitations: no limitations General appearance: alert, in distress (The patient is in pain) Head exam: Present: atraumatic, normocephalic Eye exam: Present: normal appearance, EOMI Neck exam: Present: normal inspection. Absent: meningismus Respiratory exam: Absent: respiratory distress Cardiovascular Exam: Present: regular rate Back exam: Present: normal inspection Neurological exam: Present: alert, oriented X3 Psychiatric exam: Present: normal affect, normal mood Skin exam: Present: warm, dry Course Vital Signs 06/15/23 06/15/23 06/15/23 19:37 20:55 23:10 Temperature 98 F Pulse Rate 84 80 66 Respiratory 24 19 18 Rate Blood Pressure 175/92 154/77 153/96 O2 Sat by Pulse 98 95 98 Oximetry Medical Decision Making - Medical Decision Making Was pt. sent in by a medical professional or institution (, PA, OUTREACH ANALYST, urgent care, hospital, or fpc...) When possible be specific @ -No Did you speak to anyone other than the patient for history (EMS, parent, family, police, friend...)? What history was obtained from this source @ -No Did you review nursing and triage notes (agree or disagree)? Why? @ -I reviewed and agree with nursing and triage notes Were old charts reviewed (outside hosp., previous admission, EMS record, old EKG, old radiological studies, urgent care reports/EKG's, fpc records)? Report findings @ -No old charts were reviewed Differential Diagnosis (chest pain, altered mental status, abdominal pain women, abdominal pain men, vaginal bleeding, weakness, fever, dyspnea, syncope, headache, dizziness, GI bleed, back pain, seizure, CVA, palpatations, mental health, musculoskeletal)? @ - MDM Differential Back Pain: Strain, zoster, cauda equina syndrome, epidural abscess, vertebral osteomyelitis, discitis, fracture, subluxation, disc herniation, DJD, spinal stenosis, dissection, AAA, pancreatitis, peptic ulcer disease, pyelonephritis, kidney stone this is not meant to be an all-inclusive list. EKG interpreted by me (3pts min.). @ -As above X-rays interpreted by me (1pt min.). @ -None done CT interpreted by me (1pt min.). @ -CT shows findings likely represent recently passed calculus within the bladder, and residual changes of obstructive uropathy involving the right kidney and ureter. U/S interpreted by me (1pt. min.). @ -None done What testing was considered but not performed or refused? (CT, X-rays, U/S, labs)? Why? @ -None What meds were considered but not given or refused? Why? @ -None Did you discuss the management of the patient with other professionals (professionals i.e. DrCharley, PA, OUTREACH ANALYST, lab, RT, psych nurse, protective services social worker, rn admission, teacher, mechanical engineering officer, family caseworker)? Give summary @ -No Was smoking cessation discussed for >3mins.? @ -No Was critical care preformed (if so, how long)? @ -No Were there social determinants of health that impacted care today? How? (Homelessness, low income, unemployed, alcoholism, drug addiction, transportation, low edu. Level, literacy, decrease access to med. care, penitentiary, rehab)? @ -No Was there de-escalation of care discussed even if they declined (Discuss DNR or withdrawal of care, Hospice)? DNR status @ -No What co-morbidities impacted this encounter? (DM, HTN, Smoking, COPD, CAD, Cancer, CVA, ARF, Chemo, Hep., AIDS, mental health diagnosis, sleep apnea, morbid obesity)? @ -None Was patient admitted / discharged? Hospital course, mention meds given and route, prescriptions, significant lab abnormalities, going to OR and other pertinent info. @ -37-year-old male presenting with chief complaint of right flank pain. History and physical exam are conducted. Urine shows small blood. CT shows recently passed 2-1/2 cm stone. Patient is educated on today's findings. He is provided with pain and nausea medication. Provided with urology referral. Discharged home. Follow-up with PCP. Report back to ER with any new or worsening symptoms. Discussed return parameters and answered all questions. Patient conveyed verbal understanding and agreed to the plan. I discussed this case in detail with my attending Dr. Duffy Undiagnosed new problem with uncertain prognosis? @ -No Drug Therapy requiring intensive monitoring for toxicity (Heparin, Nitro, Insulin, Cardizem)? @ -No Were any procedures done? @ -No Diagnosis/symptom? @ -Kidney stone Acute, or Chronic, or Acute on Chronic? @ -Acute Uncomplicated (without systemic symptoms) or Complicated (systemic symptoms)? @ -Uncomplicated Side effects of treatment? @ -No Exacerbation, Progression, or Severe Exacerbation? @ -No Poses a threat to life or bodily function? How? (Chest pain, [place], [place], pneumonia, PE, COPD, DKA, ARF, appy, cholecystitis, CVA, Diverticulitis, Homicidal, Suicidal, threat to staff... and all critical care pts) @ -Low likelihood - Lab Data Lab Results 06/15/23 Range/Units 22:19 Urine Color Light Yellow Urine Appearance Clear (Clear) Urine pH 5.0 (5.0-8.0) Ur Specific [place] 1.029 (1.001-1.035) Urine Protein Negative (Negative) Urine Glucose (UA) Negative (Negative) Urine Ketones Negative (Negative) Urine Blood Small H (Negative) Urine Nitrite Negative (Negative) Urine Bilirubin Negative (Negative) Urine Urobilinogen <2.0 (<2.0) mg/dL Ur Leukocyte Esterase Negative (Negative) Urine RBC 1 (0-5) /hpf Urine WBC 1 (0-5) /hpf Urine Mucus Rare H (None) /hpf Disposition Clinical Impression: Kidney stone Disposition: HOME SELF-CARE Condition: Good Instructions (If sedation given, give patient instructions): Kidney Stones (ED) Additional Instructions: Follow-up with PCP. Report back to ER with any new or worsening symptoms. Prescriptions: Tamsulosin [Flomax] 0.4 mg PO DAILY #5 cap HYDROcodone/APAP 7.5-325MG [[place] 7.5-325] 1 tab PO Q6HR PRN 3 Days #12 tab PRN Reason: Pain Ondansetron Odt [Zofran Odt] 4 mg PO Q8HR PRN #20 tab PRN Reason: Nausea Is patient prescribed a controlled substance at d/c from ED?: Yes When asked, does pt state using other controlled substances?: No If prescribed controlled substance>3 days was MAPS reviewed?: Prescribed <3 Days If opioid is for acute pain is fill amount 7 days or less?: Yes Referrals: Vic Spencer MD [Primary Care Provider] - 1-2 days Enoch Shahid MD [STAFF PHYSICIAN] - 1-2 days Time of Disposition: 23:45
== END 2023-06-16 00:02 | disposition home or self-care (01) ==
LOC: EC 19:14
DX: N20.0 Calculus of kidney (principal); F17.290 Nicotine dependence, other tobacco product, uncomplicated
CPT/HCPCS: 81001; 74176; 99285; 96374; 96375 ×3; 96361 ×3; J2270; J2405; J1170; J1885

== ENCOUNTER 2023-06-18 12:28 | Observation (INO) | payer OTHER ==
[2023-06-18] MEDS: SODIUM CHLORIDE 0.9% 2,000 ML IV STA (13:53)
[2023-06-18] MEDS: ONDANSETRON 4 MG/2 ML VIAL IVP STA (13:53)
[2023-06-18] MEDS: MORPHINE SULFATE 4 MG/ML SYRINGE IVP STA (13:54)
[2023-06-18] MEDS: KETOROLAC 15 MG/ML 1 ML VIAL IVP STA (13:54)
[2023-06-18 14:04] LABS: Basophils # (A) 0.1 k/uL (0-0.2); Basophils % (A) 0 %; Eosinophils # (A) 0.2 k/uL (0-0.7); Eosinophils % (A) 2 %; HCT 45.7 % (39.0-53.0); HGB 15.5 gm/dL (13.0-17.5); Lymphocytes # (A) 2.5 k/uL (1.0-4.8); Lymphocytes % (A) 18 %; MCH 32.3 pg (25.0-35.0); MCHC 33.8 g/dL (31.0-37.0); MCV 95.6 fL (80.0-100.0); Mean Platelet Volume 7.4; Monocytes % (A) 7 %; Neutrophils # (A) 9.8 k/uL (1.3-7.7); Neutrophils % (A) 72 %; Platelet Count 268 k/uL (150-450); RBC 4.78 m/uL (4.30-5.90); RDW 13.2 % (11.5-15.5); WBC 13.7 k/uL (3.8-10.6)
--- NOTE | 2023-06-18 14:14 | XR ---
EXAMINATION TYPE: XR KUB DATE OF EXAM: 06/18/2023 2:10 PM CLINICAL INDICATION:Male, 37 years old with history of abdominal pain; COMPARISON: None. TECHNIQUE: One radiographic view of the abdomen was obtained. FINDINGS: The bowel gas pattern is nonspecific without dilated loops of small or large bowel. There i s no evidence for organomegaly or pneumoperitoneum. The osseous structures are intact. No abnormal calcifications are present. Fecal material and gas are demonstrated throughout the colon and rectum. Joint space narrowing and osteophyte formation of the hips. There is cam deformities of the femoral heads. IMPRESSION: Nonspecific bowel gas pattern without radiographic evidence for acute process. Mild degeneration changes of the hips with osteophyte formation bilaterally with suspected cam deform ities.
[2023-06-18 14:37] LABS: ALT 30 U/L (4-49); AST 25 U/L (17-59); African American GFR (CKD) 78 (>60 ml/min/1.73 sqM); Albumin 4.3 g/dL (3.5-5.0); Alkaline Phosphatase 75 U/L (38-126); Anion Gap 9 mmol/L; Blood Urea Nitrogen 14 mg/dL (9-20); Calcium 9.2 mg/dL (8.4-10.2); Carbon Dioxide 28 mmol/L (22-30); Chloride 103 mmol/L (98-107); Glucose 90 mg/dL (74-99); Non-African American GFR(CKD) 67 (>60 ml/min/1.73 sqM); Potassium 3.8 mmol/L (3.5-5.1); Sodium 140 mmol/L (137-145); Total Bilirubin 2.3 mg/dL (0.2-1.3); Total Protein 7.5 g/dL (6.3-8.2)
[2023-06-18 14:46] LABS: Amorphous Sediment,Urine Rare /hpf; Appearance,Urine Cloudy (Clear); Bacteria,Urine Rare /hpf; Bilirubin,Urine Negative (Negative); Blood,Urine Large (Negative); Color,Urine Yellow; Glucose,Urine (UA) Negative (Negative); Hyaline Casts,Urine 3 /lpf (0-2); Ketones,Urine 2+ (Negative); Leukocyte Esterase,Urine Moderate (Negative); Mucus,Urine Occasional /hpf; Nitrite,Urine Negative (Negative); Protein,Urine 1+ (Negative); RBC,Urine 115 /hpf (0-5); Specific Gravity,Urine 1.019 (1.001-1.035); Squamous Epithelial Cell,Urine <1 /hpf (0-4); Urobilinogen,Urine <2.0 mg/dL (<2.0); WBC,Urine 59 /hpf (0-5)
[2023-06-18] MEDS ORDERED: NALOXONE 0.4 MG/ML 1 ML VIAL IV PRN (15:31)
[2023-06-18] MEDS ORDERED: ACETAMINOPHEN TAB 325 MG TAB PO PRN (15:31)
--- NOTE | 2023-06-18 15:31 | ED ---
General Adult HPI - General Chief complaint: Back Pain/Injury Stated complaint: Kidney Stones- return visit Time Seen by Provider: 06/18/23 12:45 Source: patient Mode of arrival: ambulatory Limitations: no limitations - History of Present Illness Initial comments: 37-year-old male who presents to the emergency department with right-sided flank pain. Patient was seen on Sunday for similar complaint. Patient had a right- sided hydronephrosis and hydroureter. Patient also had a 2.5 mm bladder stone. States he was discharged home on Zofran, flomax and [place]. He has been unable to keep down any food or water. Patient states every time he tries to eat he throws it up. Urine has become very dark in coloration. Admits to significant decrease in urine production. He denies any fevers. No other alleviating, precipitating or modifying factors - Related Data Home Medications Medication Instructions Recorded Confirmed Adalimumab [Humira(Cf) Pen] 40 mg SQ Q14D 06/18/23 06/18/23 Dextroamphetamine/Amphetamine 20 mg PO BID 06/18/23 06/18/23 [Adderall] Meloxicam [Mobic] 7.5 mg PO BID 06/18/23 06/18/23 Methotrexate Sodium 25mg/Ml 25 mg SQ SA 06/18/23 06/18/23 Solution Previous Rx's Medication Instructions Recorded HYDROcodone/APAP 7.5-325MG [[place] 1 tab PO Q6HR PRN 3 Days #12 tab 06/15/23 7.5-325] Tamsulosin [Flomax] 0.4 mg PO DAILY #5 cap 06/15/23 Allergies Allergy/AdvReac Type Severity Reaction Status Date / Time No Known Allergies Allergy Verified 06/18/23 16:08 Review of Systems ROS Statement: Those systems with pertinent positive or pertinent negative responses have been documented in the HPI. ROS Other: All systems not noted in ROS Statement are negative. Past Medical History Past Medical History: CVA/TIA Additional Past Medical History / Comment(s): possible torn lt rotator cuff. 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 stroke in june 2018 Past Psychological History: No Psychological Hx Reported Smoking Status: Never smoker, Vaper Past Alcohol Use History: Rare Past Drug Use History: None Reported - Past Family History Mother Family Medical History: Fibromyalgia General Exam Limitations: no limitations General appearance: alert, in no apparent distress Head exam: Present: atraumatic, normocephalic, normal inspection Eye exam: Present: normal appearance, PERRL, EOMI. Absent: scleral icterus, conjunctival injection, periorbital swelling ENT exam: Present: normal exam, mucous membranes moist Neck exam: Present: normal inspection. Absent: tenderness, meningismus, lymphadenopathy Respiratory exam: Present: normal lung sounds bilaterally. Absent: respiratory distress, wheezes, rales, rhonchi, stridor Cardiovascular Exam: Present: regular rate, normal rhythm, normal heart sounds. Absent: systolic murmur, diastolic murmur, rubs, gallop, clicks GI/Abdominal exam: Present: soft, normal bowel sounds. Absent: distended, tenderness, guarding, rebound, rigid Extremities exam: Present: normal inspection, full ROM, normal capillary refill. Absent: tenderness, pedal edema, joint swelling, calf tenderness Back exam: Present: normal inspection Neurological exam: Present: alert, oriented X3, CN II-XII intact Psychiatric exam: Present: normal affect, normal mood Skin exam: Present: warm, dry, intact, normal color. Absent: rash Course Vital Signs 06/18/23 06/18/23 12:43 22:45 Temperature 98.7 F Pulse Rate 79 60 Respiratory 20 16 Rate Blood Pressure 144/82 149/85 O2 Sat by Pulse 96 98 Oximetry Medical Decision Making - Medical Decision Making Was pt. sent in by a medical professional or institution (, PA, MANNEQUIN REFINISHER, urgent care, hospital, or usp...) When possible be specific @ -No Did you speak to anyone other than the patient for history (EMS, parent, family, police, friend...)? What history was obtained from this source @ -No Did you review nursing and triage notes (agree or disagree)? Why? @ -I reviewed and agree with nursing and triage notes Were old charts reviewed (outside hosp., previous admission, EMS record, old EKG, old radiological studies, urgent care reports/EKG's, usp records)? Report findings @ -I reviewed patient's CT from Sunday Differential Diagnosis (chest pain, altered mental status, abdominal pain women, abdominal pain men, vaginal bleeding, weakness, fever, dyspnea, syncope, headache, dizziness, GI bleed, back pain, seizure, CVA, palpatations, mental h ealth, musculoskeletal)? @ -Differential Abdominal Pain Men: Appendicitis, cholecystitis, diverticulosis, ischemic bowel, pancreatitis, hepatitis, UTI, gastroenteritis, AAA, incarcerated hernia, bowel obstruction, constipation, inflammatory bowel, hepatitis, peptic ulcer disease, splenic infarction, perforated viscus, testicular torsion, this is not meant to be an all-inclusive list EKG interpreted by me (3pts min.). @ -Not done X-rays interpreted by me (1pt min.). @ -None done CT interpreted by me (1pt min.). @ -Not done U/S interpreted by me (1pt. min.). @ -None done What testing was considered but not performed or refused? (CT, X-rays, U/S, labs)? Why? @ -CT was considered however this was previously completed on Sunday What meds were considered but not given or refused? Why? @ -None Did you discuss the management of the patient with other professionals (professionals i.e. , PA, MANNEQUIN REFINISHER, lab, RT, psych nurse, social work manager, v groove cutter, teacher, medical officer psychiatry, caseworker)? Give summary @ -Spoke with Dr. Spencer who agrees to admit the patient Was smoking cessation discussed for >3mins.? @ -No Was critical care preformed (if so, how long)? @ -No Were there social determinants of health that impacted care today? How? (Homelessness, low income, unemployed, alcoholism, drug addiction, transportation, low edu. Level, literacy, decrease access to med. care, senior living, rehab)? @ -No Was there de-escalation of care discussed even if they declined (Discuss DNR or withdrawal of care, Hospice)? DNR status @ -No What co-morbidities impacted this encounter? (DM, HTN, Smoking, COPD, CAD, Cancer, CVA, ARF, Chemo, Hep., AIDS, mental health diagnosis, sleep apnea, morbid obesity)? @ -None Was patient admitted / discharged? Hospital course, mention meds given and route, prescriptions, significant lab abnormalities, going to OR and other pertinent info. @ -Upon arrival patient was seen and evaluated in [place] [id number]. Thorough history and physical exam was performed. Did review the patient's previous CT. He did have a bladder stone with right-sided hydronephrosis. Urinalysis was negative for infection. Patient presents with continued right-sided flank pain and therefore IV is established. Laboratory studies are conducted. He was given pain and nausea medications as well as IV fluids. Review of the patient's labs demonstrate that his kidney function has worsened. He is significantly dehydrated with now concern for pyelonephritis. KUB was performed however no v isible stone. As the patient has been unable to hold down any food or drink I did recommend admission to the hospital for which the patient was agreeable. Called and spoke with Dr. Spencer who agreed to admit the patient Undiagnosed new problem with uncertain prognosis? @ -No Drug Therapy requiring intensive monitoring for toxicity (Heparin, Nitro, Insulin, Cardizem)? @ -No Were any procedures done? @ -No Diagnosis/symptom? @ -Acute right-sided flank pain, acute pyelonephritis, leukocytosis, ROCIO Acute, or Chronic, or Acute on Chronic? @ -Acute Uncomplicated (without systemic symptoms) or Complicated (systemic symptoms)? @ -Complicated Side effects of treatment? @ -No Exacerbation, Progression, or Severe Exacerbation? @ -No Poses a threat to life or bodily function? How? (Chest pain, [place], [place], pneumonia, PE, COPD, DKA, ARF, appy, cholecystitis, CVA, Diverticulitis, Homicidal, Stella cidal, threat to staff... and all critical care pts) @ -Yes as patient does meet criteria for sepsis. Source of sepsis was identified at 1345 - Lab Data Result diagrams: 06/18/23 13:45 06/18/23 13:45 Lab Results 06/18/23 06/18/23 06/18/23 Range/Units 13:45 13:45 13:45 WBC 13.7 H (3.8-10.6) k/uL RBC 4.78 (4.30-5.90) m/uL Hgb 15.5 (13.0-17.5) gm/dL Hct 45.7 (39.0-53.0) % MCV 95.6 (80.0-100.0) fL MCH 32.3 (25.0-35.0) pg MCHC 33.8 (31.0-37.0) g/dL RDW 13.2 (11.5-15.5) % Plt Count 268 (150-450) k/uL MPV 7.4 Neutrophils % 72 % Lymphocytes % 18 % Monocytes % 7 % Eosinophils % 2 % Basophils % 0 % Neutrophils # 9.8 H (1.3-7.7) k/uL Lymphocytes # 2.5 (1.0-4.8) k/uL Monocytes # 1.0 (0-1.0) k/uL Eosinophils # 0.2 (0-0.7) k/uL Basophils # 0.1 (0-0.2) k/uL Sodium 140 (137-145) mmol/L Potassium 3.8 (3.5-5.1) mmol/L Chloride 103 (98-107) mmol/L Carbon Dioxide 28 (22-30) mmol/L Anion Gap 9 mmol/L BUN 14 (9-20) mg/dL Creatinine 1.35 H (0.66-1.25) mg/dL Est GFR (CKD-EPI)AfAm 78 (>60 ml/min/1.73 sqM) Est GFR (CKD-EPI)NonAf 67 (>60 ml/min/1.73 sqM) Glucose 90 (74-99) mg/dL Plasma Lactic Acid Tommie (0.7-2.0) mmol/L Calcium 9.2 (8.4-10.2) mg/dL Total Bilirubin 2.3 H (0.2-1.3) mg/dL AST 25 (17-59) U/L ALT 30 (4-49) U/L Alkaline Phosphatase 75 (38-126) U/L Total Protein 7.5 (6.3-8.2) g/dL Albumin 4.3 (3.5-5.0) g/dL Urine Color Yellow Urine Appearance Cloudy (Clear) Urine pH 6.0 (5.0-8.0) Ur Specific Salyer 1.019 (1.001-1.035) Urine Protein 1+ H (Negative) Urine Glucose (UA) Negative (Negative) Urine Ketones 2+ H (Negative) Urine Blood Large H (Negative) Urine Nitrite Negative (Negative) Urine Bilirubin Negative (Negative) Urine Urobilinogen <2.0 (<2.0) mg/dL Ur Leukocyte Esterase Moderate H (Negative) Urine RBC 115 H (0-5) /hpf Urine WBC 59 H (0-5) /hpf Ur Squamous Epith Cells <1 (0-4) /hpf Amorphous Sediment Rare H (None) /hpf Urine Bacteria Rare H (None) /hpf Hyaline Casts 3 H (0-2) /lpf Urine Mucus Occasional H (None) /hpf 06/18/23 Range/Units 13:45 WBC (3.8-10.6) k/uL RBC (4.30-5.90) m/uL Hgb (13.0-17.5) gm/dL Hct (39.0-53.0) % MCV (80.0-100.0) fL MCH (25.0-35.0) pg MCHC (31.0-37.0) g/dL RDW (11.5-15.5) % Plt Count (150-450) k/uL MPV Neutrophils % % Lymphocytes % % Monocytes % % Eosinophils % % Basophils % % Neutrophils # (1.3-7.7) k/uL Lymphocytes # (1.0-4.8) k/uL Monocytes # (0-1.0) k/uL Eosinophils # (0-0.7) k/uL Basophils # (0-0.2) k/uL Sodium (137-145) mmol/L Potassium (3.5-5.1) mmol/L Chloride (98-107) mmol/L Carbon Dioxide (22-30) mmol/L Anion Gap mmol/L BUN (9-20) mg/dL Creatinine (0.66-1.25) mg/dL Est GFR (CKD-EPI)AfAm (>60 ml/min/1.73 sqM) Est GFR (CKD-EPI)NonAf (>60 ml/min/1.73 sqM) Glucose (74-99) mg/dL Plasma Lactic Acid Tommie 0.8 (0.7-2.0) mmol/L Calcium (8.4-10.2) mg/dL Total Bilirubin (0.2-1.3) mg/dL AST (17-59) U/L ALT (4-49) U/L Alkaline Phosphatase (38-126) U/L Total Protein (6.3-8.2) g/dL Albumin (3.5-5.0) g/dL Urine Color Urine Appearance (Clear) Urine pH (5.0-8.0) Ur Specific S[place] (1.001-1.035) Urine Protein (Negative) Urine Glucose (UA) (Negative) Urine Ketones (Negative) Urine Blood (Negative) Urine Nitrite (Negative) Urine Bilirubin (Negative) Urine Urobilinogen (<2.0) mg/dL Ur Leukocyte Esterase (Negative) Urine RBC (0-5) /hpf Urine WBC (0-5) /hpf Ur Squamous Epith Cells (0-4) /hpf Amorphous Sediment (None) /hpf Urine Bacteria (None) /hpf Hyaline Casts (0-2) /lpf Urine Mucus (None) /hpf Disposition Clinical Impression: Bladder stone, Pyelonephritis of right kidney, Hydroureter Disposition: ADMITTED IP TO THIS [facility] Condition: Stable Is patient prescribed a controlled substance at d/c from ED?: No Time of Disposition: 15:31 Decision to Admit Reason: Admit from EC Decision Date: 06/18/23 Decision Time: 15:31
[2023-06-18] MEDS: SODIUM CHLORIDE 0.9% 1,000 ML IV STA (16:51)
[2023-06-18] MEDS: ONDANSETRON 4 MG/2 ML VIAL IVP PRN (16:52)
[2023-06-18] MEDS: KETOROLAC 15 MG/ML 1 ML VIAL IVP PRN (16:53)
[2023-06-18] MEDS: cefTRIAXone IN SWFI 1,000 MG/10 ML SYRINGE IVP STA (17:37)
--- NOTE | 2023-06-18 18:43 | US ---
EXAMINATION TYPE: US renals and bladder DATE OF EXAM: 06/18/2023 COMPARISON: CT: 06/15/23 CLINICAL INDICATION: Male, 37 years old with history of hydronephrosis, hydroureter, pyelo, recent st one; recent stone. Pt states unable to urinate for days EXAM MEASUREMENTS: Right Kidney: 13.2 x 7.1 x 7.0 cm Left Kidney: 11.6 x 6.4 x 6.3 cm Right Kidney: No hydronephrosis or masses seen Left Kidney: Mild hydro seen Bladder: wnl Bilateral Jets seen: Only the left jet visualized There is no evidence for hydronephrosis at this point in time. No nephrolithiasis is seen. No mary s are identified. The urinary bladder is anechoic. IMPRESSION: No evidence for obstructive uropathy or renal calculus.
[2023-06-19] MEDS: NON FORMULARY DRUG (Dextroamphetamine/Amphetamine [Adderall] 20 MG Tablet) PO SCH (00:27)
[2023-06-19] MEDS: MORPHINE SULFATE 4 MG/ML SYRINGE IV PRN (01:01)
[2023-06-19 12:31] LABS: Basophils # (A) 0.04 X 10*3/uL (0.00-0.10); Basophils % (A) 0.5 %; Eosinophils % (A) 2.4 %; HCT 41.4 % (39.6-50.0); Lymphocytes # (A) 2.25 X 10*3/uL (0.90-5.00); Lymphocytes % (A) 27.2 %; MCH 32.4 pg (27.0-32.0); MCHC 33.8 g/dL (32.0-37.0); MCV 95.8 FL (80.0-97.0); Mean Platelet Volume 10.2 FL (9.5-12.2); Monocytes # (A) 1.02 X 10*3/uL (0.20-1.00); Monocytes % (A) 12.3 %; NRBC Per 100 WBC 0 X 10*3/uL (0.00-0.01); Neutrophils # (A) 4.71 X 10*3/uL (1.80-7.70); Neutrophils % (A) 57.1 %; Platelet Count 253 X 10*3/uL (140-440); RBC 4.32 X 10*6/uL (4.40-5.60); RDW 13.2 % (11.5-14.5); WBC 8.26 X 10*3/uL (4.50-10.00)
[2023-06-19 12:38] LABS: Blood Urea Nitrogen 17.4 mg/dL (9.0-27.0); Calcium 9.2 mg/dL (8.7-10.3); Carbon Dioxide 24.1 mmol/L (21.6-31.8); Chloride 104 mmol/L (96-109); Glucose 91 mg/dL (70-110); Potassium 4.4 mmol/L (3.5-5.5); Sodium 141 mmol/L (135-145)
--- NOTE | 2023-06-19 14:08 | PN ---
PROGRESS NOTE DATE OF SERVICE: 06/19/2023 CHIEF COMPLAINT: Right flank pain. HISTORY OF PRESENT ILLNESS: This gentleman is still having some discomfort. He has had no fever or chills. He has had no nausea or vomiting. 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 IMPRESSION: 1. Right-sided pyelonephritis. 2. Possible recently passed ureteral calculus. PLAN: Continue with IV fluids and antibiotics. MMODL / IJN: [id number] /
[2023-06-19] MEDS: DEXTROSE 5%-0.45% NACL 1,000 ML IV SCH (16:46)
[2023-06-19] MEDS: AMPICILLIN-SULBACTAM 3 GM in SODIUM CHLORIDE 0.9% 100 ML IVPB SCH (16:46)
[2023-06-19 19:49] VITALS: RESP 16
[2023-06-20 08:22] VITALS: BP 149/88; PULSE 57; TEMP 98
--- NOTE | 2023-06-20 09:09 | HP ---
HISTORY AND PHYSICAL CHIEF COMPLAINT: Right flank pain with a history of calculi in the past. HISTORY OF PRESENT ILLNESS: This gentleman presented to the emergency room with right flank pain. Studies suggested he has a urinary tract infection. White count is 13,700. There is not a clear evidence of a stone at this point, but he is admitted with diagnosis of urinary tract infection and possible right-sided pyelonephritis. REVIEW OF SYSTEMS: He has had no nausea, vomiting, melena, hematochezia, jaundice, hematuria, or dysuria, etc. Past medical history, family history, and personal and social history is unremarkable otherwise. PAST MEDICAL HISTORY: He does have a history of psoriasis and psoriatic arthritis for which he sees Dr. Ambrose and is on methotrexate, methotrexate. Review of systems otherwise normal. Past medical history, family history, and personal and social history reveal he is not allergic to any medication. MEDICATIONS: He takes, 1. Vicodin. 2. Adderall. 3. Methotrexate. 4. Meloxicam. 5. Vitamin D. He may also be on Humira, but this is not in our office records. SOCIAL HISTORY: He used to smoke. He does not drink. PHYSICAL EXAMINATION: VITAL SIGNS: Revealed blood pressure 146/86, pulse of 83, respirations 14, and temperature 99. GENERAL: He appeared to be in some mild discomfort. HEENT: Head, ears, eyes, nose, mouth, and throat were normal. CHEST: Clear. CARDIAC: Normal. He was tender in the right flank area. ABDOMEN: Soft and there did not appear to be any visceromegaly. EXTREMITIES: Normal. NEUROLOGIC: Intact. DIAGNOSES: Admitted to the hospital with diagnoses, 1. Right flank pain. 2. Possible right ureteral calculus. 3. Urinary tract infection. 4. Possible pyelonephritis. 5. Psoriasis. 6. Psoriatic arthritis. PLAN: 1. Bedrest. 2. IV fluids. 3. IV antibiotics. MMODL / IJN: [id number] /
[2023-06-20] MEDS ORDERED: AMOXIC-POT CLAV 875-125MG 1 EACH TAB PO SCH (21:00)
--- NOTE | 2023-06-21 02:06 | DS ---
DISCHARGE SUMMARY CHIEF COMPLAINT: Left flank pain and pyelonephritis. HISTORY OF PRESENT ILLNESS AND PHYSICAL EXAM: Details of this man's history and physical can be found in the initial workup. COURSE IN THE HOSPITAL: After admission, he was placed on bedrest, started on intravenous fluids, and IV antibiotics. His pain completely subsided. There was no sign of obstruction. It was felt that he will go home on oral antibiotics and to be followed up in several days. FINAL DIAGNOSES: 1. Left-sided pyelonephritis. 2. Probable recently passed ureteral calculus. 3. Psoriatic arthritis. OPERATIONS: None. CONSULTATION: None. He is improved. MMODL / IJN: [id number] /
== END 2023-06-20 12:30 | disposition home or self-care (01) ==
LOC: EC 12:28 → 6NMEDSUR 15:31
PROVIDERS: ADMIT Family Medicine; ATTEND Family Medicine
DX: N12 Tubulo-interstitial nephritis, not specified as acute or chronic (principal); N21.0 Calculus in bladder; N13.4 Hydroureter; N39.0 Urinary tract infection, site not specified; L40.50 Arthropathic psoriasis, unspecified; F17.200 Nicotine dependence, unspecified, uncomplicated; Z86.73 Personal history of transient ischemic attack (TIA), and cerebral infarction without residual deficits; Z79.1 Long term (current) use of non-steroidal anti-inflammatories (NSAID); Z79.899 Other long term (current) drug therapy
CPT/HCPCS: 96376 ×3; 96361 ×3; 96365; 96366 ×2; 96375; 99285; 36415; 80053; 80048; 83605; 85025 ×2; 81001; 87040; 74018; 76770; G0378 ×3; J2270 ×2; J2405; J0696; J0295 ×2; J1885 ×2

== ENCOUNTER → 2023-07-13 | Outpatient (CLI) | payer OTHER ==
--- NOTE | 2023-07-13 10:24 | MR ---
EXAMINATION TYPE: MR knee LT wo con DATE OF EXAM: 07/13/2023 COMPARISON: 10/31/2017 HISTORY: Lt knee pain TECHNIQUE: Multiplanar, multisequence imaging of the left knee is performed without IV contrast. FINDINGS: MEDIAL MENISCUS: There is intrasubstance signal seen in the posterior horn and body of the medial men iscus compatible with mucoid degeneration and suspicious for degenerative tear. LATERAL MENISCUS: Intrasubstance signal with no definite intra-articular extension favored to represe nt mucoid degeneration. CRUCIATE LIGAMENTS: The anterior and posterior cruciate ligaments are intact and unremarkable. COLLATERAL LIGAMENTS: The medial collateral ligament and lateral collateral ligament complex are inta ct. There is some mild signal adjacent to the MCL compatible strain. No evidence of tear. EXTENSOR MECHANISM: Visualized quadriceps and patellar tendons are intact. EFFUSION: No significant suprapatellar joint effusion. POPLITEAL CYST: Tiny subcentimeter Sandy cyst. TRICOMPARTMENT SPACES: There is severe narrowing of the medial compartment of the joint space. Modera te narrowing of the patellofemoral joint and mild narrowing of the lateral compartment. Marginal spur ring. There is loss of tibial and femoral cartilage at the medial compartment with reactive marrow si gnal and bone marrow edema. Grade II chondromalacia of the patellar cartilage. Subcutaneous edema in the soft tissues. IMPRESSION: 1. 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 2. MCL sprain with no tear. 3. Mucoid degeneration bilateral menisci with findings suggestive of degenerative posterior horn and body medial meniscal tear.
== END | disposition home or self-care (01) ==
LOC: RADMRIMAIN 08:50
PROVIDERS: ATTEND Family Medicine
DX: M17.12 Unilateral primary osteoarthritis, left knee (principal); M23.632 Other spontaneous disruption of medial collateral ligament of left knee; M94.262 Chondromalacia, left knee; M25.462 Effusion, left knee; S83.242A Other tear of medial meniscus, current injury, left knee, initial encounter; X58.XXXA Exposure to other specified factors, initial encounter

== ENCOUNTER 2023-10-14 23:00 | Emergency (ER) | payer OTHER ==
[~2023-10-14 23:00] MED LIST: DIPH,PERTUS(ACELL)TETVAC-LF 0.5 ML VIAL IM ONE; LIDOCAINE 1%-EPI 1:100,000 20 ML VIAL ONE; LIDOCAINE 2%-EPI 1:100,000 20 ML VIAL ONE
== END 2023-10-15 00:20 | disposition home or self-care (01) ==
LOC: EC 23:00
CPT/HCPCS: 90715; 99282